=== PATIENT | female | born 1955 | race Caucasian/White ===

== ENCOUNTER → 2016-11-02 | Outpatient (CLI) | payer OTHER ==
[~2016-11-02] MED LIST: ASPI81TA28 PO; ATOR10TA88 PO; BIOT1POW3 PO; BIOTPOW17 PO; BUPR-83 PO; CHOL20007 PO; CLB/200 PO; CLR10 PO; DIAZ-165 PO; DIAZ10TA PO; DICLOFENAC GEL TOP; ESCI1TAB10 PO; FLUT0.15 NAE; INSDGI SC; LAMO100T16 PO; LEVO100T7 PO; LEVO88TA PO; LISI-461 PO; MELA3TAB PO; MELATAB2 PO; MISCCAP80 PO; NRN/300 PO; NVLG SQ; NVLGI SC; PEPPOIL TOP; PRAM1.5T PO; SUMA100T16 PO; TRAZ50TA35 PO; VALA500T60 PO; [UNRECOGNIZED DRUG - OTHER] TOP
[2016-11-02 13:25] LABS: BASO % 0.5 %; BASO ABS # 0.03 K/uL (0-0.2); COMPLETE YES; EOS % 2.1 %; HEMATOCRIT 42.4 % (37-47); IG% 0.2 %; LYMPH % 19.5 %; LYMPH ABS # 1.21 K/uL (1.2-3.4); MEAN CELL VOLUME 99.8 fL (80-100); MEAN CORPUSCULAR HEMOGLOBIN 34.6 pg (25-34); MEAN CORPUSCULAR HGB CONC 34.7 g/dl (32-36); MONO % 6.6 %; NEUT % 71.1 %; PLATELET COUNT 269 K/uL (130-400); RED BLOOD COUNT 4.25 M/uL (4.2-5.4); WHITE BLOOD COUNT 6.21 K/uL (4.8-10.8)
[2016-11-02 13:26] LABS: ALT/SGPT 47 U/L (12-78); BLOOD UREA NITROGEN 10 mg/dl (7-18); BUN/CREATININE RATIO 10.5 (10-20); CALCIUM 8.8 mg/dl (8.5-10.1); CARBON DIOXIDE 34 mmol/L (21-32); CHLORIDE 100 mmol/L (98-107); CHOLESTEROL 193 mg/dl (0-200); CREATININE 0.96 mg/dl (0.60-1.20); GLUCOSE 164 mg/dl (70-99); POTASSIUM 3.8 mmol/L (3.5-5.1); SODIUM 140 mmol/L (136-145)
[2016-11-02 13:31] LABS: ESTIMATED AVERAGE GLUCOSE 171 mg/dl; HA1C FLAG Normal (Normal)
[2016-11-02 13:36] LABS: ALB/GLOB RATIO 1.4 (0.9-2); ALKALINE PHOSPHATASE 109 U/L (45-117); AST/SGOT 38 U/L (15-37); CHOLESTEROL/HDL RATIO 1.9; HDL CHOLESTEROL 103 mg/dl; LDL CHOLESTEROL CALCULATED 75 mg/dl; TRIGLYCERIDES 73 mg/dl (0-150); VERY LOW DENSITY LIPOPROT CALC 15 mg/dl
--- NOTE | 2016-11-07 09:14 | CODING QUERY MEDICAL NECESSITY ---
SUPPORTING DIAGNOSIS NEEDED A supporting diagnosis is required for the test/procedure performed on this patient in order for us to be reimbursed by the patient's insurance. Please provide a supporting diagnosis for the following test/procedure listed below next to the test name along with your signature. *If there is no additional diagnosis for this patient that would support the following test/procedure please document that below next to the test/procedure. Test(s)/Procedure(s) that require a supporting diagnosis: DOS 11/02 * Vitamin D DIAGNOSIS: Provider Signature: Date: Thank you Zunilda Newman Health Information Management Once completed, please kindly fax back to [phone] For questions please call [phone]
== END | disposition home or self-care (01) ==
LOC: C.LABMFLN 08:33
PROVIDERS: ATTEND Family Medicine
DX: E03.9 Hypothyroidism, unspecified (principal); M85.80 Other specified disorders of bone density and structure, unspecified site; E10.649 Type 1 diabetes mellitus with hypoglycemia without coma; E10.65 Type 1 diabetes mellitus with hyperglycemia; E10.8 Type 1 diabetes mellitus with unspecified complications; R63.4 Abnormal weight loss; E56.9 Vitamin deficiency, unspecified

== ENCOUNTER → 2016-11-22 | Outpatient (CLI) | payer OTHER ==
[~2016-11-22] MED LIST changes: +ATOR10TA82 PO; -ATOR10TA88 PO
[2016-11-22 18:22] LABS: BASO % 0.2 %; BASO ABS # 0.01 K/uL (0-0.2); COMPLETE YES; EOS % 1.3 %; HEMATOCRIT 38.8 % (37-47); LYMPH % 19.7 %; MEAN CELL VOLUME 97.5 fL (80-100); MEAN CORPUSCULAR HEMOGLOBIN 34.2 pg (25-34); MEAN CORPUSCULAR HGB CONC 35.1 g/dl (32-36); MEAN PLATELET VOLUME 10.4 fL (7.4-10.4); MONO % 12.7 %; NEUT % 66.1 %; PLATELET COUNT 184 K/uL (130-400); RED BLOOD COUNT 3.98 M/uL (4.2-5.4); WHITE BLOOD COUNT 4.57 K/uL (4.8-10.8)
[2016-11-22 19:23] LABS: ALB/GLOB RATIO 1.4 (0.9-2); ALKALINE PHOSPHATASE 96 U/L (45-117); ALT/SGPT 24 U/L (12-78); AMYLASE 11 U/L (25-115); AST/SGOT 17 U/L (15-37); BLOOD UREA NITROGEN 12 mg/dl (7-18); BUN/CREATININE RATIO 13.2 (10-20); CALCIUM 8.2 mg/dl (8.5-10.1); CARBON DIOXIDE 30 mmol/L (21-32); CHLORIDE 104 mmol/L (98-107); CREATININE 0.89 mg/dl (0.60-1.20); GLUCOSE 162 mg/dl (70-99); POTASSIUM 3.8 mmol/L (3.5-5.1); SODIUM 139 mmol/L (136-145)
[2016-11-24 18:06] LABS: O&P GIARDIA AG NOT DETECTED (NOT DETECTED)
== END | disposition home or self-care (01) ==
LOC: C.LABMFLN 10:40
PROVIDERS: ATTEND Family Medicine
DX: R63.4 Abnormal weight loss (principal); R19.7 Diarrhea, unspecified; R53.83 Other fatigue; R11.0 Nausea; F32.9 Major depressive disorder, single episode, unspecified; G43.909 Migraine, unspecified, not intractable, without status migrainosus

== ENCOUNTER → 2016-12-28 | Outpatient (CLI) | payer OTHER | END | disposition home or self-care (01) | LOC: C.PAPS 10:22 | PROVIDERS: ATTEND Obstetrics & Gynecology | DX: Z12.4 Encounter for screening for malignant neoplasm of cervix (principal); R87.610 Atypical squamous cells of undetermined significance on cytologic smear of cervix (ASC-US) ==

== ENCOUNTER → 2017-01-17 | Outpatient (CLI) | payer OTHER ==
[~2017-01-17] MED LIST changes: -ASPI81TA28 PO; -DIAZ10TA PO; -INSDGI SC; -LEVO100T7 PO; -MELA3TAB PO; -NRN/300 PO; -PRAM1.5T PO
== END | disposition home or self-care (01) ==
LOC: C.PATHSPEC 10:34
PROVIDERS: ATTEND Plastic Surgery
DX: L72.0 Epidermal cyst (principal)

== ENCOUNTER 2017-01-31 05:26 | Day surgery (SDC) | payer OTHER ==
[2017-01-03 15:10] VITALS: BMI 18.0
--- NOTE | 2017-01-03 15:44 | PAT Medication Instructions ---
Service Date January 03, 2017. Current Home Medication List Atorvastatin (Lipitor), 10 MG PO QPM Bupropion (Wellbutrin), 100 MG PO QAM Celecoxib (CeleBREX), 200 MG PO QAM Cholecalciferol (Vitamin D3), 5,000 UNITS PO NOON Diazepam (Valium), 5 MG PO BID PRN for RN Escitalopram Oxalate (Lexapro), 20 MG PO QAM Fluticasone Propionate (Nasal) (Flonase Allergy Relief), 2 SPRAYS DAVID PRN Insulin Aspart (Novolog), UNITS SC AC Lamotrigine (Lamictal), 50 MG PO QAM Lamotrigine (Lamictal), 100 MG PO QPM Levothyroxine Sodium (Synthroid), 88 MCG PO QAM Lisinopril (Zestril), 10 MG PO QAM Loratadine (Claritin), 10 MG PO QPM Melatonin (Melatonin Maximum Strengt), 1 TAB PO HS Peppermint Oil (Bulk) (Peppermint Oil), 1 DOSE TOP PRN Probiotic Product (Probiotic), 1 TAB PO NOON Sumatriptan Succinate (Imitrex), 100 MG PO PRN Trazodone Hcl (Trazodone), 50-100 MG PO HS PRN for RN Valacyclovir (Valtrex), 500 MG PO QPM [Biotin], 1 TAB PO BID [Diclofenac Gel], 1 DOSE TOP PTN [M Grain], 1 DOSE TOP PRN Medication Instructions For Your Scheduled Surgery - Check with surgeon for instructions: Celecoxib (CeleBREX), 200 MG PO QAM - Hold the following medications 24 hours prior to surgery: [Diclofenac Gel], 1 DOSE TOP PTN [M Grain], 1 DOSE TOP PRN Peppermint Oil (Bulk) (Peppermint Oil), 1 DOSE TOP PRN - Hold the following medications the morning of surgery: [Biotin], 1 TAB PO BID Probiotic Product (Probiotic), 1 TAB PO NOON Lisinopril (Zestril), 10 MG PO QAM Cholecalciferol (Vitamin D3), 5,000 UNITS PO NOON Insulin Aspart (Novolog), UNITS SC AC - Take the following medications the morning of surgery with a sip of water: Sumatriptan Succinate (Imitrex), 100 MG PO PRN Levothyroxine Sodium (Synthroid), 88 MCG PO QAM Lamotrigine (Lamictal), 50 MG PO QAM Fluticasone Propionate (Nasal) (Flonase Allergy Relief), 2 SPRAYS DAVID PRN Escitalopram Oxalate (Lexapro), 20 MG PO QAM Diazepam (Valium), 5 MG PO BID PRN for RN Bupropion (Wellbutrin), 100 MG PO QAM - Take the following medications as scheduled the night before surgery: [Biotin], 1 TAB PO BID Valacyclovir (Valtrex), 500 MG PO QPM Trazodone Hcl (Trazodone), 50-100 MG PO HS PRN for RN Sumatriptan Succinate (Imitrex), 100 MG PO PRN Loratadine (Claritin), 10 MG PO QPM Melatonin (Melatonin Maximum Strengt), 1 TAB PO HS Lamotrigine (Lamictal), 100 MG PO QPM Fluticasone Propionate (Nasal) (Flonase Allergy Relief), 2 SPRAYS DAVID PRN Diazepam (Valium), 5 MG PO BID PRN for RN Atorvastatin (Lipitor), 10 MG PO QPM - Continue basal rate of insulin pump after midnight and do not bolus morning of surgery. If you have any questions please call us at [phone] (Anjelica Mcmahan PA-C) or [phone] or [phone]
[2017-01-03 16:20] LABS: BASO % 0.2 %; BASO ABS # 0.02 K/uL (0-0.2); COMPLETE YES; EOS % 1.2 %; HEMATOCRIT 38.3 % (37-47); IG% 0.1 %; LYMPH % 14.7 %; LYMPH ABS # 1.19 K/uL (1.2-3.4); MEAN CELL VOLUME 102.7 fL (80-100); MEAN CORPUSCULAR HEMOGLOBIN 34.3 pg (25-34); MEAN CORPUSCULAR HGB CONC 33.4 g/dl (32-36); MEAN PLATELET VOLUME 9.6 fL (7.4-10.4); MONO % 6.9 %; NEUT % 76.9 %; PLATELET COUNT 246 K/uL (130-400); RED BLOOD COUNT 3.73 M/uL (4.2-5.4)
[2017-01-03 16:36] LABS: BUN/CREATININE RATIO 11.9 (10-20); CALCIUM 8.4 mg/dl (8.5-10.1); POTASSIUM 4.2 mmol/L (3.5-5.1)
[~2017-01-31] VITALS: Ht 167.6 cm; Wt 50.9 kg
[~2017-01-31 05:26] MED LIST changes: -BIOT1POW3 PO; -NVLG SQ
[2017-01-31 05:49] VITALS: BP 178/81; PULSE 66; TEMP 36.7; O2SAT 99; Ht 167.6 cm; Wt 50.9 kg
[2017-01-31] MEDS ORDERED: LACTATED RINGER'S 1000ML 1,000 ML IV SCH ×2 (06:00→10:00)
[2017-01-31] MEDS ORDERED: DEXAMETHASONE SOD INJ 4 MG/ML VIAL ONE ×2 (06:21→07:23)
[2017-01-31] MEDS ORDERED: PROPOFOL IV EMULSION 10 MG/ML 20 ML VIAL IV ONE (06:21)
[2017-01-31] MEDS ORDERED: FENTANYL CITRATE INJ 50 MCG/1 ML 2 ML VIAL ONE (06:21)
[2017-01-31] MEDS ORDERED: ONDANSETRON INJ 2 MG/ML 2 ML VIAL ONE (06:21)
[2017-01-31] MEDS ORDERED: SUCCINYLCHOLINE CHLORIDE 20 MG/ML 10 ML VIAL IV ONE (06:21)
[2017-01-31] MEDS ORDERED: LIDOCAINE HCL 2% 2 ML VIAL (20MG/ML) ONE (06:21)
[2017-01-31] MEDS ORDERED: ROCURONIUM BROMIDE 10 MG/ML 5 ML VIAL ONE (06:21)
--- NOTE | 2017-01-31 06:37 | History and Physical ---
History & Physical Date Jan 31, 2017. Chief Complaint CHRONIC TONSILLITIS History of Present Illness The patient is a 61 year old female with complaints of CHRONIC TONSILLITIS WITH SORE THROATS, HALITOSIS, AND TONSILLITH FORMATION. Past Medical/Surgical History Medical Problems: (1) Diabetes YO, ASTHMA, DEPRESSION, ANXIETY, DYSLIPIDEMIA, HYPOTHYROIDISM, MIGRAINES, OA, OSTEOPENIA, RAYNAUD'S, RLS, VITAMIN D DEFICIENCY PSH: S/P APPY, , D&C, FINGER SURGERY, HYSTEROSCOPY Allergies Coded Allergies: Latex (Verified Allergy, Mild, RASH, 01/31/17) Cefaclor (Verified Allergy, Unknown, RASH HIVES, 01/31/17) Cephalosporins (Verified Allergy, Unknown, unknown, 01/31/17) Ciprofloxacin (Verified Allergy, Unknown, GI SYMPTOMS, 01/31/17) Sulfa Antibiotics (Verified Allergy, Unknown, UNKNOWN, 01/31/17) patient states that she has tolerated Bactrim in the past Amoxicillin (Unverified Adverse Reaction, Unknown, severe diarrhea, ) Clavulanic Acid (Unverified Adverse Reaction, Unknown, severe diarrhea, ) Home Medications Scheduled Atorvastatin (Lipitor), 10 MG PO QPM Bupropion (Wellbutrin), 100 MG PO QAM Cholecalciferol (Vitamin D3), 5,000 UNITS PO NOON Escitalopram Oxalate (Lexapro), 20 MG PO QAM Fluticasone Propionate (Nasal) (Flonase Allergy Relief), 2 SPRAYS DAVID PRN Insulin Aspart (Novolog), UNITS SC AC Lamotrigine (Lamictal), 50 MG PO QAM Lamotrigine (Lamictal), 100 MG PO QPM Levothyroxine Sodium (Synthroid), 88 MCG PO QAM Lisinopril (Zestril), 10 MG PO QAM Loratadine (Claritin), 10 MG PO QPM Melatonin (Melatonin Maximum Strengt), 1 TAB PO HS Peppermint Oil (Bulk) (Peppermint Oil), 1 DOSE TOP PRN Probiotic Product (Probiotic), 1 TAB PO NOON Sumatriptan Succinate (Imitrex), 100 MG PO PRN Valacyclovir (Valtrex), 500 MG PO QPM [Biotin], 1 TAB PO BID [M Grain], 1 DOSE TOP PRN Scheduled PRN Diazepam (Valium), 5 MG PO BID PRN for RN Trazodone Hcl (Trazodone), 50-100 MG PO HS PRN for RN Physical Examination Skin: warm/dry, no rash Eyes: normal inspection, EOMI, sclerae normal ENT: + pertinent finding (1-2+ TONSILS WITH TONSILLITH IN L SUPERIOR POLE) Head: normocephalic, atraumatic Neck: supple, no adenopathy, trachea midline Respiratory/Chest: lungs clear, normal breath sounds, no respiratory distress Cardiovascular: regular rate, rhythm, no edema, no murmur Neurologic/Psych: no motor/sensory deficits, alert, normal reflexes, oriented x 3 Diagnosis CHRONIC TONSILLITIS Plan of Treatment BILATERAL TONSILLECTOMY
--- NOTE | 2017-01-31 06:42 | Discharge Instructions ---
Discharge Instructions Date of Service Jan 31, 2017. Admission Reason for Admission: Chronic Tonsillitis Discharge Discharge Diagnosis / Problem: SAME Discharge Goals Goal(s): Therapeutic intervention Activity Recommendations Activity Limitations: as noted below LIGHT ACTIVITY FOR 2WEEKS; NO DRIVING WHILE ON LORTAB . Current Hospital Diet Patient's current hospital diet: Discharge Diet Recommended Diet: Full Liquid Diet Diet Texture: Mechanical Soft (ground) Pending Studies Studies pending at discharge: no Laboratory Results Hemoglobin A1c Test 11/02/16 11:46 Range/Units Estimated Average Glucose 171 mg/dl Hemoglobin A1c 7.6 H 4.5-5.6 % Lipid Panel Test 11/02/16 11:46 Range/Units Triglycerides Level 73 0-150 mg/dl Cholesterol Level 193 0-200 mg/dl HDL Cholesterol 103 mg/dl Cholesterol/HDL Ratio 1.9 LDL Cholesterol, Calculated 75 mg/dl Medical Emergencies . Who to Call and When: Medical Emergencies: If at any time you feel your situation is an emergency, please call 911 immediately. . Non-Emergent Contact Non-Emergency issues call your: Surgeon . . "Provider Documentation" section prepared by Rickey Marc. . VTE Core Measure Inpt VTE Proph given/why not?: SCD's
[2017-01-31] MEDS ORDERED: ACETAMINOPHEN 1000 MG/100 ML IV IV ONE (06:55)
[2017-01-31] MEDS ORDERED: BUPIVACAINE 0.25% 30 ML VIAL ONE (07:01)
[2017-01-31] MEDS ORDERED: BACITRACIN OINT 15 GM TUBE ONE (07:25)
--- NOTE | 2017-01-31 07:42 | [facility] Operative Report ---
Operative Report Operative Date Jan 31, 2017. Pre-Operative Diagnosis Chronic Tonsillitis Post-Operative Diagnosis SAME Procedure(s) Performed BILATERAL TONSILLECTOMY Surgeon Dr. Rickey Marc Tunneling Machine Operator Surgeon(s) None per surgeon Estimated Blood Loss 2ML Findings 1. 1-2+ CRYPTIC ENDOPHYTIC TONSILS WITH TONSILLITHS Specimens A.) Right Tonsil B.) Left Tonsil I attest to the content of the Intraoperative Record and any orders documented therein. Any exceptions are noted below.
[2017-01-31] MEDS ORDERED: HYDROCODONE/APAP 2.5MG/108MG ELIX 5 ML UDP PO PRN (07:45)
[2017-01-31] MEDS ORDERED: ONDANSETRON INJ 2 MG/ML 2 ML VIAL IV PRN ×2 (07:45→08:00)
[2017-01-31] MEDS ORDERED: LIDOCAINE VISCOUS 2% 100ML MT ONE (07:46)
[2017-01-31] MEDS ORDERED: FENTANYL CITRATE INJ 50 MCG/1 ML 2 ML VIAL IV PRN (08:00)
[2017-01-31] MEDS ORDERED: EpHEDrine SULFATE INJ 50 MG/ML AMP IV PRN (08:00)
[2017-01-31] MEDS ORDERED: PROMETHAZINE HCL INJ 6.25 MG in SODIUM CHLORIDE 0.9% 50ML 50 ML IV PRN (08:00)
[2017-01-31] MEDS ORDERED: ATROPINE SULFATE 0.1 MG/ML 5ML SYR IV PRN (08:00)
--- NOTE | 2017-01-31 08:06 | OPERATIVE REPORT ---
DATE OF OPERATION: 01/31/2017 PREOPERATIVE DIAGNOSIS: Chronic tonsillitis. POSTOPERATIVE DIAGNOSIS: Chronic tonsillitis. PROCEDURE: Bilateral tonsillectomy. SURGEON: Dr. Marc. HOST/HOSTESS RESTAURANT: None. ANESTHESIA: General endotracheal. ESTIMATED BLOOD LOSS: 2 mL FINDINGS: Two 1-2+ cryptic endophytic tonsils bilaterally with tonsillith formation. SPECIMENS: Left and right tonsil sent separately for permanent pathological assessment. COMPLICATIONS: None. INDICATIONS FOR THE PROCEDURE: The patient is a 61-year-old female with a history of chronic tonsillitis with recurrent tonsillith formation and associated sore throats and halitosis. She presents for the above-mentioned procedure on an outpatient elective basis. DESCRIPTION OF PROCEDURE: After informed consent had been obtained from the patient, the patient was wheeled to the operating room and placed on the operating table in supine position. Monitors were placed. After induction of general endotracheal anesthesia, the table was turned 90 degrees and the patient's head and neck were gently extended. Antibiotic ointment was applied to lips and the mouth gag was carefully inserted, opened, and stabilized on a roll of towels. The palate was inspected and found to be normal. An Allis clamp was then used to grasp the right tonsil and the superior pole and Bovie electrocautery was used to remove the tonsil in a capsular plane with care to preserve the underlying mucosa and musculature of the anterior and posterior tonsillar pillars. The left tonsil was then removed in a similar fashion. The intraoperative findings were 1-2+ cryptic endophytic tonsils bilaterally with tonsillith formation. The tonsils were sent separately for permanent pathological assessment. The mouth gag was then released for 1 minute. This was reopened and hemostasis was confirmed. An orogastric tube was placed and the stomach was suctioned free of air and stomach contents. 2% lidocaine jelly was placed in the bilateral tonsillar fossae for added anesthetic effect. This marked the end of the case. The patient tolerated the procedure well and there were no apparent complications. The patient was extubated and transferred to recovery room in stable condition. I attest to the content of the Intraoperative Record and any orders documented therein. Any exception s are noted below.
--- NOTE | 2017-01-31 08:42 | Anesthesiology Progress Note ---
Anesthesia Post Op Note Date & Time Jan 31, 2017 at 08:42 Vital Signs Pain Intensity: 0 Vital Signs Past 12 Hours Date Time Temp Pulse Resp B/P (MAP) Pulse Ox O2 Delivery O2 Flow Rate FiO2 01/31/17 08:30 65 16 164/81 97 Room Air Oxymask 01/31/17 08:20 70 16 160/83 98 Room Air Oxymask 01/31/17 08:10 72 16 160/85 100 Oxymask 3 01/31/17 08:02 36.3 65 14 166/89 100 Oxymask 10 01/31/17 05:49 36.7 66 16 178/81 (113) 99 Notes Mental Status: alert / awake / arousable, participated in evaluation Pt Amnestic to Procedure: Yes Nausea / Vomiting: adequately controlled Pain: adequately controlled Airway Patency, RR, SpO2: stable & adequate BP & HR: stable & adequate Hydration State: stable & adequate Anesthetic Complications: no major complications apparent
[2017-01-31 08:50] VITALS: BP 158/75; PULSE 66; TEMP 36.6; O2SAT 99
[2017-01-31 09:20] VITALS: BP 166/77; PULSE 63; O2SAT 100
[2017-01-31 09:50] VITALS: BP 158/68; PULSE 68; O2SAT 100
[2017-01-31 10:20] VITALS: BP 139/70; PULSE 60; TEMP 36.6; O2SAT 100
[2017-01-31] MEDS ORDERED: BELLADONNA/OPIUM SUPP 60 MG SUPP PR ONE (11:02)
== END 2017-01-31 10:40 | disposition home or self-care (01) ==
LOC: C.ACU 05:26
DX: J35.01 Chronic tonsillitis (principal); E11.9 Type 2 diabetes mellitus without complications; J45.909 Unspecified asthma, uncomplicated; I10 Essential (primary) hypertension; G47.33 Obstructive sleep apnea (adult) (pediatric); E78.5 Hyperlipidemia, unspecified; F32.9 Major depressive disorder, single episode, unspecified; Z79.899 Other long term (current) drug therapy; Z90.89 Acquired absence of other organs; Z98.890 Other specified postprocedural states; Z91.040 Latex allergy status; Z88.1 Allergy status to other antibiotic agents; Z88.2 Allergy status to sulfonamides; Z68.1 Body mass index [BMI] 19.9 or less, adult

== ENCOUNTER → 2017-02-19 | Outpatient (CLI) | payer OTHER ==
[~2017-02-19] MED LIST changes: -ATOR10TA82 PO; +ATOR10TA88 PO; +BIOT1POW3 PO; -CLB/200 PO; -DICLOFENAC GEL TOP; +NVLG SQ
[2017-02-19 13:48] LABS: ALT/SGPT 53 U/L (12-78); BLOOD UREA NITROGEN 10 mg/dl (7-18); BUN/CREATININE RATIO 11.7 (10-20); CARBON DIOXIDE 35 mmol/L (21-32); CHLORIDE 100 mmol/L (98-107); CHOLESTEROL 170 mg/dl (0-200); CREATININE 0.84 mg/dl (0.60-1.20); ESTIMATED AVERAGE GLUCOSE 166 mg/dl; GLUCOSE 141 mg/dl (70-99); HA1C FLAG Normal (Normal); POTASSIUM 3.8 mmol/L (3.5-5.1); SODIUM 140 mmol/L (136-145)
[2017-02-19 14:04] LABS: ALB/GLOB RATIO 1.4 (0.9-2); ALKALINE PHOSPHATASE 123 U/L (45-117); AST/SGOT 33 U/L (15-37); HDL CHOLESTEROL 83 mg/dl; LDL CHOLESTEROL CALCULATED 73 mg/dl; TRIGLYCERIDES 68 mg/dl (0-150); VERY LOW DENSITY LIPOPROT CALC 14 mg/dl
== END | disposition home or self-care (01) ==
LOC: C.LABMFLN 11:19
PROVIDERS: ATTEND Family Medicine
DX: E10.65 Type 1 diabetes mellitus with hyperglycemia (principal); E10.69 Type 1 diabetes mellitus with other specified complication; E03.9 Hypothyroidism, unspecified; E10.43 Type 1 diabetes mellitus with diabetic autonomic (poly)neuropathy

== ENCOUNTER 2017-04-18 16:47 | Emergency (ER) | payer OTHER ==
[~2017-04-18] VITALS: Ht 167.6 cm; Wt 50.6 kg
[~2017-04-18 16:47] MED LIST changes: -BIOT1POW3 PO; -NVLG SQ
[2017-04-18 16:53] VITALS: TEMP 36.5; Ht 167.6 cm; Wt 50.6 kg
[2017-04-18] MEDS ORDERED: SODIUM CHLORIDE 0.9% 1000ML 1,000 ML IV STA (17:13)
[2017-04-18] MEDS ORDERED: SODIUM CHLORIDE 0.9% 1000ML 250 ML IV STA (17:13)
--- NOTE | 2017-04-18 17:19 | EMERGENCY ROOM VISIT NOTE ---
History Report prepared by Felisha: Bia Drake Under the Supervision of: Dr. Davis Cardenas M.D. First contact with patient: 16:59 Chief Complaint: STROKE SYMPTOMS Stated Complaint: STUMBLING, WEAKNESS, TROUBLE/SLURRED SPEAKING History of Present Illness The patient is a 61 year old female who presents to the Emergency Room with complaints of constant generalized weakness beginning about a month ago. The patient notes she has been having trouble speaking, putting words together, slurring of her words, trouble thinking and remember things, stumbling over feet , dizziness after leaning over to bead picker things, loss of strength in her hands , shakiness in hands, racing heart beat, and constant chills. She denies any falls, vision changes, problems swallowing, fever, chest pain, shortness of breath, nausea, or vomiting. The patient also notes numbness in her left left arm that extends to her fingers that may be due to an injury she had with her left shoulder a couple months ago. The patient has a history of vertigo, diabetes, depression and anxiety. She states her diabetes is well controlled and that she was recently put on medication for her anxiety and depression. The patient's PCP is Dr. Jose Carlos Urban who advised her to come to the ED today. The patient saw Dr. Jacobson -Psychiatry today about her new depression/anxiety medication and her recent trouble maintaining her weight. She has a history of hypothyroidism and a tonsillectomy. Source of History: patient, family Onset: a month ago Position: other (generalized) Quality: other (weakness) Associated Symptoms: No fevers, No chest pain, No SOB, No nausea, No vomiting Note: The patient notes trouble speaking, putting words together, slurring of her words, trouble thinking and remember things, stumbling over feet, dizziness after leaning over to bead picker things, loss of strength in her hands, shakiness in hands, some racing heart beats, and constant chills. Pt denies any falls, vision changes, or problems swallowing. Review of Systems See HPI for pertinent positives & negatives. A total of 10 systems reviewed and were otherwise negative. Past Medical & Surgical Medical Problems: (1) Anxiety (2) Depression (3) Diabetes (4) Hypothyroid (5) Vertigo Old medical records were reviewed. Nurse's notes were reviewed and I agree with. Family History Diabetes mellitus Social History Smoking Status: Never Smoker Smokeless Tobacco Use: No Alcohol Use: occasionally Drug Use: none Housing Status: lives with family Occupation Status: employed Current/Historical Medications Scheduled Atorvastatin (Lipitor), 10 MG PO QPM Biotin (Biotin), 1 TAB PO BID Bupropion (Wellbutrin), 100 MG PO UD Cholecalciferol (Vitamin D3), 5,000 UNITS PO NOON Diazepam (Valium), 5 MG PO HS Escitalopram Oxalate (Lexapro), 20 MG PO HS Fluticasone Propionate (Nasal) (Flonase Allergy Relief), 2 SPRAYS DAVID PRN Insulin Aspart (Novolog), SQ AC Lamotrigine (Lamictal), 50 MG PO BID Levothyroxine Sodium (Synthroid), 88 MCG PO QAM Lisinopril (Zestril), 10 MG PO HS Loratadine (Claritin), 10 MG PO QPM Melatonin (Melatonin Maximum Strengt), 1 TAB PO HS Peppermint Oil (Bulk) (Peppermint Oil), 1 DOSE TOP PRN Sumatriptan Succinate (Imitrex), 100 MG PO PRN Valacyclovir (Valtrex), 500 MG PO QPM [M Grain], 1 DOSE TOP PRN Scheduled PRN Trazodone Hcl (Trazodone), 50-100 MG PO HS PRN for RN Allergies Coded Allergies: Latex (Verified Allergy, Mild, RASH, 04/18/17) Cefaclor (Verified Allergy, Unknown, RASH HIVES, 04/18/17) Cephalosporins (Verified Allergy, Unknown, unknown, 04/18/17) Sulfa Antibiotics (Verified Allergy, Unknown, UNKNOWN, 04/18/17) patient states that she has tolerated Bactrim in the past Amoxicillin (Verified Adverse Reaction, Unknown, severe diarrhea, 04/18/17) Ciprofloxacin (Verified Adverse Reaction, Unknown, GI SYMPTOMS, 04/18/17) Clavulanic Acid (Verified Adverse Reaction, Unknown, severe diarrhea, ) Physical Exam Vital Signs Date Time Temp Pulse Resp B/P (MAP) Pulse Ox O2 Delivery O2 Flow Rate FiO2 04/18/17 20:34 62 18 146/77 100 04/18/17 20:21 66 18 99 04/18/17 20:06 66 17 99 04/18/17 20:01 147/78 9/6/17 19:51 71 18 98 04/18/17 19:36 69 17 98 04/18/17 19:31 151/83 04/18/17 19:06 68 15 100 04/18/17 19:01 164/84 04/18/17 19:00 68 18 100 04/18/17 18:49 62 16 167/91 100 Room Air 04/18/17 18:46 04/18/17 18:45 70 17 100 04/18/17 17:48 66 04/18/17 16:53 36.5 72 18 161/87 99 Room Air Physical Exam General: Slender middle aged female in no acute distress, breathing comfortably on room air. Normal speech HEENT: Normal cephalic atraumatic. Pupils are equal round and reactive to light. Extraocular movements are intact. Oropharynx is pink with moist mucous membranes. No swelling of the mouth lips or tongue. Foster Coma Score 15. Normal speech. No aphasia. Answering questions appropriately with normal thought process. Neck: Supple with a midline trachea. No meningeal signs or stiffness, no JVD or bruits. No Stridor. Chest: Clear to auscultation bilaterally. No wheezes or rhonchi. No increased work of breathing. Heart: regular rate and rhythm. Abdomen: Soft nontender, nondistended without rebound guarding or rigidity. Extremities: No cyanosis clubbing or edema. No calf tenderness or assymetry Spine/Back. Non tender to palpation. No CVA tenderness Skin: Good turgor without rashes. Neurologic exam: Cranial nerves two through 12 are intact. Motor and sensation are intact and symmetrical throughout. No tremor, finger to nose intact, able to read without difficulty. Medical Decision & Procedures ER Provider Diagnostic Interpretation: Radiology results as stated below per my review and radiologist interpretation: CHEST ONE VIEW PORTABLE FINDINGS: Lung volumes are at the upper limits of normal. Nipple shadows project over each lung. There is no consolidation or evidence of pulmonary edema. Cardiomediastinal silhouette is normal. There is no pneumothorax or pleural effusion. IMPRESSION: No acute cardiopulmonary findings. Electronically signed by: Maximo Quinn M.D. CT SCAN OF THE BRAIN WITHOUT IV CONTRAST FINDINGS: Brain parenchyma: There is mild subcortical and periventricular microangiopathic change. There is no hemorrhage, mass effect, or evidence of acute territorial ischemia by CT criteria. Marinelli-white matter is preserved. No extra-axial fluid collection is seen. Ventricles, sulci, cisterns: Normal in configuration. Intracranial vasculature: There is atherosclerotic calcification of the cavernous carotid arteries. Calvarium: Unremarkable. Sinuses and mastoids: The visualized paranasal sinuses are clear. The mastoid air cells are well pneumatized. Orbits: The bony orbits are grossly intact. IMPRESSION: There is no hemorrhage, mass effect, or evidence of acute territorial ischemia by CT criteria. Electronically signed by: Jose Carlos Kaur M.D. Laboratory Results 04/18/17 18:10 Red Blood Count 4.13, Mean Corpuscular Volume 99.8, Mean Corpuscular Hemoglobin 35.1, Mean Corpuscular Hemoglobin Concent 35.2, Mean Platelet Volume 9.5, Neutrophils (%) (Auto) 74.8, Lymphocytes (%) (Auto) 17.7, Monocytes (%) (Auto) 5.9, Eosinophils (%) (Auto) 1.4, Basophils (%) (Auto) 0.1, Neutrophils # (Auto) 5.17, Lymphocytes # (Auto) 1.23, Monocytes # (Auto) 0.41, Eosinophils # (Auto) 0.10, Basophils # (Auto) 0.01 04/18/17 18:10 Test 04/18/17 18:10 04/18/17 18:51 White Blood Count 6.93 K/uL (4.8-10.8) Red Blood Count 4.13 M/uL (4.2-5.4) Hemoglobin 14.5 g/dL (12.0-16.0) Hematocrit 41.2 % (37-47) Mean Corpuscular Volume 99.8 fL (80-100) Mean Corpuscular Hemoglobin 35.1 pg (25-34) Mean Corpuscular Hemoglobin Concent 35.2 g/dl (32-36) Platelet Count 228 K/uL (130-400) Mean Platelet Volume 9.5 fL (7.4-10.4) Neutrophils (%) (Auto) 74.8 % Lymphocytes (%) (Auto) 17.7 % Monocytes (%) (Auto) 5.9 % Eosinophils (%) (Auto) 1.4 % Basophils (%) (Auto) 0.1 % Neutrophils # (Auto) 5.17 K/uL (1.4-6.5) Lymphocytes # (Auto) 1.23 K/uL (1.2-3.4) Monocytes # (Auto) 0.41 K/uL (0.11-0.59) Eosinophils # (Auto) 0.10 K/uL (0-0.5) Basophils # (Auto) 0.01 K/uL (0-0.2) RDW Standard Deviation 41.4 fL (36.4-46.3) RDW Coefficient of Variation 11.4 % (11.5-14.5) Immature Granulocyte % (Auto) 0.1 % Immature Granulocyte # (Auto) 0.01 K/uL (0.00-0.02) Anion Gap 3.0 mmol/L (3-11) Est Creatinine Clear Calc Drug Dose 60.5 ml/min Estimated GFR () 95.9 Estimated GFR (Non- 82.8 BUN/Creatinine Ratio 15.7 (10-20) Calcium Level 9.1 mg/dl (8.5-10.1) Total Bilirubin 0.5 mg/dl (0.2-1) Direct Bilirubin 0.2 mg/dl (0-0.2) Aspartate Amino Transf (AST/SGOT) 27 U/L (15-37) Alanine Aminotransferase (ALT/SGPT) 43 U/L (12-78) Alkaline Phosphatase 132 U/L (45-117) Total Protein 6.8 gm/dl (6.4-8.2) Albumin 4.2 gm/dl (3.4-5.0) Lipase 77 U/L (73-393) Thyroid Stimulating Hormone (TSH) 2.540 uIu/ml (0.300-4.500) Urine Color YELLOW Urine Appearance CLEAR (CLEAR) Urine pH 8.5 (4.5-7.5) Urine Specific [place] 1.010 (1.000-1.030) Urine Protein NEG (NEG) Urine Glucose (UA) NEG (NEG) Urine Ketones NEG (NEG) Urine Occult Blood NEG (NEG) Urine Nitrite NEG (NEG) Urine Bilirubin NEG (NEG) Urine Urobilinogen NEG (NEG) Urine Leukocyte Esterase NEG (NEG) Laboratory studies as stated above per my review. Medications Administered Medications (Trade) Dose Ordered Sig/[place] Route Start Time Stop Time Status Last Admin Dose Admin Sodium Chloride 250 ml @ 999 mls/hr Q16M STAT IV 04/18/17 17:13 04/18/17 17:28 DC 04/18/17 18:17 999 MLS/HR Sodium Chloride 1,000 ml @ 100 mls/hr Q10H STAT IV 04/18/17 17:13 04/18/17 22:18 DC 04/18/17 18:17 100 MLS/HR ECG Indication: weakness Rate (beats per minute): 63 Rhythm: normal sinus Findings: RBBB (incomplete), no ectopy, other (poor R-wave progression) Comparison ECG Date: no prior available ED Course 170: Past medical records reviewed. The patient was evaluated in room A9B, and a complete history and physical examination were performed. 1713: Sodium Chloride 1000 ml @ 100 mls/hr IV, Sodium Chloride 250 ml @ 999 mls/ hr IV. 1830: The patient is headed to CT. She is comfortable appearing. 1925: Upon reevaluation, the patient is resting comfortably. I discussed the results and treatment plan with her. She verbalized agreement of the treatment plan. The patient was discharged home. Medical Decision Differential diagnosis include but are not limited to: intracranial process, medication side effect, electrolyte metabolic abnormality, infection, toxicologic process. This patient comes in as described above. She was placed in room A9. She complains about having sensation that it's hard to find words and feeling a little shaky over the last month. There is nothing different about today. There is nothing to suggest that she had an acute stroke at present as the symptoms have gone on for a while and she has a normal exam and normal stroke scale. She was able to read sentences without problems or slurred speech. She has no nystagmus. She does not drink alcohol. She is on multiple psychiatric medications that possibly be causing some of her symptoms. She has no clonus or anything to suggest serotonin syndrome. EKG does not suggest acute coronary syndrome or arrhythmia .CAT scan of her head is unremarkable. She's had no acute electrolyte or metabolic abnormalities. She's 10 nothing shows trauma or infection. She feels good and would like to go home. She is ambulating without difficulty. I will have her follow-up with her regular doctor and she may need further outpatient workup including possibly an MRI. She can use and aspirin day and return if: Worsening of symptoms, any new problems or concerns. She is happy the plan and discharged to home. Medication Reconcilliation Current Medication List: was personally reviewed by me Blood Pressure Screening Patient's blood pressure: Elevated blood pressure Blood pressure disposition: Elevated BP felt to be situational Impression Primary Impression: Weakness Scribe Attestation The scribe's documentation has been prepared under my direction and personally reviewed by me in its entirety. I confirm that the note above accurately reflects all work, treatment, procedures, and medical decision making performed by me. Departure Information Dispostion Home / Self-Care Referrals Jose Carlos Urban M.D. (PCP) Forms HOME CARE DOCUMENTATION FORM, IMPORTANT VISIT INFORMATION Patient Instructions My [facility] Additional Instructions Rest. Drink plenty of fluids. Return if: Fever or chills, worsening of symptoms, numbness of weakness, any new problems or concerns Follow-up with your doctor this week for recheck
[2017-04-18] MEDS ORDERED: BIOT1POW3 PO (17:35)
[2017-04-18] MEDS ORDERED: NVLG SQ (17:35)
--- NOTE | 2017-04-18 17:52 | DIAGNOSTIC IMAGING REPORT ---
CHEST ONE VIEW PORTABLE CLINICAL HISTORY: Chest pain. COMPARISON STUDY: Chest radiograph October 15, 2012. FINDINGS: Lung volumes are at the upper limits of normal. Nipple shadows project over each lung. There is no consolidation or evidence of pulmonary edema. Cardiomediastinal silhouette is normal. There is no pneumothorax or pleural effusion. IMPRESSION: No acute cardiopulmonary findings. Electronically signed by: Maximo Quinn M.D. 04/18/2017 5:51 PM Dictated Date/Time: 04/18/2017 5:50 PM
[2017-04-18 18:26] LABS: BASO % 0.1 %; BASO ABS # 0.01 K/uL (0-0.2); COMPLETE YES; EOS % 1.4 %; HEMATOCRIT 41.2 % (37-47); IG% 0.1 %; LYMPH % 17.7 %; LYMPH ABS # 1.23 K/uL (1.2-3.4); MEAN CELL VOLUME 99.8 fL (80-100); MEAN CORPUSCULAR HEMOGLOBIN 35.1 pg (25-34); MEAN CORPUSCULAR HGB CONC 35.2 g/dl (32-36); MEAN PLATELET VOLUME 9.5 fL (7.4-10.4); MONO % 5.9 %; NEUT % 74.8 %; PLATELET COUNT 228 K/uL (130-400); RED BLOOD COUNT 4.13 M/uL (4.2-5.4); WHITE BLOOD COUNT 6.93 K/uL (4.8-10.8)
--- NOTE | 2017-04-18 18:32 | DIAGNOSTIC IMAGING REPORT ---
CT SCAN OF THE BRAIN WITHOUT IV CONTRAST CLINICAL HISTORY: Slurred speech. COMPARISON STUDY: No priors. TECHNIQUE: Unenhanced axial CT scan of the brain is performed from the vertex to the skull base. CT DOSE: 537.48 mGy.cm FINDINGS: Brain parenchyma: There is mild subcortical and periventricular microangiopathic change. There is no hemorrhage, mass effect, or evidence of acute territorial ischemia by CT criteria. Marinelli-white matter is preserved. No extra-axial fluid collection is seen. Ventricles, sulci, cisterns: Normal in configuration. Intracranial vasculature: There is atherosclerotic calcification of the cavernous carotid arteries. Calvarium: Unremarkable. Sinuses and mastoids: The visualized paranasal sinuses are clear. The mastoid air cells are well pneumatized. Orbits: The bony orbits are grossly intact. IMPRESSION: There is no hemorrhage, mass effect, or evidence of acute territorial ischemia by CT criteria. Electronically signed by: Jose Carlos Kaur M.D. 04/18/2017 6:31 PM Dictated Date/Time: 04/18/2017 6:29 PM
[2017-04-18 18:51] LABS: BUN/CREATININE RATIO 15.7 (10-20); CALCIUM 9.1 mg/dl (8.5-10.1); CREATININE 0.77 mg/dl (0.60-1.20); POTASSIUM 3.8 mmol/L (3.5-5.1)
[2017-04-18 19:02] LABS: THYROID STIMULATING HORMONE 2.54 uIu/ml (0.300-4.500)
[2017-04-18 19:05] LABS: URINE APPEARANCE CLEAR (CLEAR); URINE BILIRUBIN NEG (NEG); URINE COLOR YELLOW; URINE NITRITE NEG (NEG); URINE PH 8.5 (4.5-7.5); UROBILINOGEN NEG (NEG)
[2017-04-18 19:10] LABS: MANUAL MICROSCOPIC REQUIRED? NO; REVIEW REQ? NO
[2017-04-18 20:34] VITALS: BP 146/77; PULSE 62; O2SAT 100
== END 2017-04-18 20:34 | disposition home or self-care (01) ==
LOC: C.EDB 16:50 → C.EDA 20:34
DX: R53.1 Weakness (principal); I45.10 Unspecified right bundle-branch block; E11.9 Type 2 diabetes mellitus without complications; E03.9 Hypothyroidism, unspecified; F32.9 Major depressive disorder, single episode, unspecified; F41.9 Anxiety disorder, unspecified; Z79.4 Long term (current) use of insulin; Z79.899 Other long term (current) drug therapy; Z88.1 Allergy status to other antibiotic agents; Z88.2 Allergy status to sulfonamides; Z88.8 Allergy status to other drugs, medicaments and biological substances; Z91.040 Latex allergy status

== ENCOUNTER → 2017-04-19 | Outpatient (CLI) | payer OTHER ==
[~2017-04-19] MED LIST changes: +BIOT1POW3 PO; -BIOTPOW17 PO; -MISCCAP80 PO; +NVLG SQ; -NVLGI SC
--- NOTE | 2017-05-09 11:11 | CODING QUERY MEDICAL NECESSITY ---
CQSUPPORTING DIAGNOSIS NEEDED A supporting diagnosis is required for the test/procedure performed on this patient in order for us to be reimbursed by the patient's insurance. Please provide a supporting diagnosis for the following test/procedure listed below next to the test name along with your signature. *If there is no additional diagnosis for this patient that would support the following test/procedure please document that below next to the test/procedure. Test(s)/Procedure(s) that require a supporting diagnosis: DOS 04/19/17 VITAMIN B12 TEST FOLIC ACID TEST Provider Signature: Date: Thank you Stephanie Perez Health Information Management Once completed, please kindly fax back to [phone] For questions please call [phone]
== END | disposition home or self-care (01) ==
LOC: C.LABMFLN 16:07
PROVIDERS: ATTEND Family Medicine
DX: R47.01 Aphasia (principal); G62.9 Polyneuropathy, unspecified; E55.9 Vitamin D deficiency, unspecified

== ENCOUNTER → 2017-05-22 | Outpatient (CLI) | payer OTHER ==
[2017-05-22 13:13] LABS: ESTIMATED AVERAGE GLUCOSE 166 mg/dl; HA1C FLAG Normal (Normal)
[2017-05-22 14:02] LABS: BLOOD UREA NITROGEN 9 mg/dl (7-18); BUN/CREATININE RATIO 11.2 (10-20); CARBON DIOXIDE 35 mmol/L (21-32); CHLORIDE 99 mmol/L (98-107); CREATININE 0.83 mg/dl (0.60-1.20); GLUCOSE 146 mg/dl (70-99); POTASSIUM 3.3 mmol/L (3.5-5.1); SODIUM 138 mmol/L (136-145)
== END | disposition home or self-care (01) ==
LOC: C.LABMFLN 09:35
PROVIDERS: ATTEND Family Medicine
DX: E10.9 Type 1 diabetes mellitus without complications (principal); E03.9 Hypothyroidism, unspecified

== ENCOUNTER → 2017-06-04 | Outpatient (CLI) | payer OTHER ==
--- NOTE | 2017-06-05 15:18 | MAMMOGRAPHY REPORT ---
BILATERAL DIGITAL SCREENING MAMMOGRAM TOMOSYNTHESIS WITH CAD: 06/04/2017 CLINICAL HISTORY: Routine screening. Patient has no complaints. TECHNIQUE: Breast tomosynthesis in addition to standard 2D mammography was performed. Current study was also evaluated with a Computer Aided Detection (CAD) system. COMPARISON: Comparison is made to exams dated: 06/01/2016 mammogram, 05/07/2014 mammogram, 05/06/2013 mammogram, 12/20/2010 ultrasound, 12/20/2010 mammogram, and 12/08/2010 mammogram - [facility]. BREAST COMPOSITION: The tissue of both breasts is heterogeneously dense, which may obscure small mas ses. FINDINGS: There are mild vascular calcifications in the breasts. No suspicious mass, architectural distortion or cluster of suspicious microcalcifications is seen. IMPRESSION: ACR BI-RADS CATEGORY 1: NEGATIVE There is no mammographic evidence of malignancy. A 1 year screening mammogram is recommended. The pa tient will receive written notification of the results. Approximately 10% of breast cancers are not detected with mammography. A negative mammographic report should not delay biopsy if a clinically suggestive mass is present. Trice La M.D. ay/:06/04/2017 15:53:31 Boiling Off Winder: Nimo CRAWFORD(Lissy)(M), [facility] letter sent: Normal 1/2 BI-RADS Code: ACR BI-RADS Category 1: Negative
== END | disposition home or self-care (01) ==
LOC: C.MAMM 14:50
PROVIDERS: ATTEND Obstetrics & Gynecology
DX: Z12.31 Encounter for screening mammogram for malignant neoplasm of breast (principal)

== ENCOUNTER → 2017-07-17 | Outpatient (CLI) | payer OTHER ==
[~2017-07-17] MED LIST changes: +ATOR10TA82 PO; -ATOR10TA88 PO
== END | disposition home or self-care (01) ==
LOC: C.PAPS 17:39
PROVIDERS: ATTEND Obstetrics & Gynecology
DX: R87.612 Low grade squamous intraepithelial lesion on cytologic smear of cervix (LGSIL) (principal)

== ENCOUNTER → 2017-09-06 | Outpatient (CLI) | payer OTHER ==
[2017-09-06 18:27] LABS: BLOOD UREA NITROGEN 14 mg/dl (7-18); CALCIUM 9.1 mg/dl (8.5-10.1); CARBON DIOXIDE 35 mmol/L (21-32); CREATININE 0.84 mg/dl (0.60-1.20); GLUCOSE 199 mg/dl (70-99); SODIUM 133 mmol/L (136-145)
[2017-09-07 06:10] LABS: HEMOGLOBIN A1C 7.3 % (4.5-5.6)
== END | disposition home or self-care (01) ==
LOC: C.LABMFLN 15:26
PROVIDERS: ATTEND Family Medicine
DX: E03.9 Hypothyroidism, unspecified (principal); E78.5 Hyperlipidemia, unspecified; F41.8 Other specified anxiety disorders

== ENCOUNTER → 2017-09-27 | Outpatient (CLI) | payer OTHER | END | disposition home or self-care (01) | LOC: C.PATHSPEC 18:32 | PROVIDERS: ATTEND Obstetrics & Gynecology | DX: R87.610 Atypical squamous cells of undetermined significance on cytologic smear of cervix (ASC-US) (principal); R87.810 Cervical high risk human papillomavirus (HPV) DNA test positive ==

== ENCOUNTER → 2017-11-21 | Day surgery (SDC) | payer OTHER ==
[2017-10-25 13:59] VITALS: Ht 167.6 cm; Wt 53.2 kg
[~2017-11-21] VITALS: Ht 167.6 cm; Wt 53.2 kg
[~2017-11-21] MED LIST changes: +ACETIC ACID 4% (WHITE VINEGAR) 30ML ONE; +ALLERGY MED PO; +AMLO-110 PO; +ATROPINE SULFATE 0.1 MG/ML 5ML SYR IV PRN; -BIOT1POW3 PO; +BUPR-79 PO; -BUPR-83 PO; +CHOL1CAP57 PO; -CHOL20007 PO; -CLR10 PO; +EpHEDrine SULFATE INJ 50 MG/ML AMP IV PRN; +FENTANYL CITRATE INJ 50 MCG/1 ML 2 ML VIAL IV PRN; +FENTANYL CITRATE INJ 50 MCG/1 ML 2 ML VIAL ONE; +FERRIC SUBSULFATE 8 GM VIAL ONE; +IBUPROFEN 600 MG TAB PO PRN; +IODINE SOLN STRONG 14 ML ONE; +KETO1DRO17 OPB; +KETOROLAC TROMETHAMINE 30 MG/ML VIAL IV. PRN; +KETOROLAC TROMETHAMINE 30 MG/ML VIAL ONE; +LACTATED RINGER'S 1000ML 1,000 ML IV SCH; -LAMO100T16 PO; -LEVO88TA PO; +LEVO88TA3 PO; +LIDO 2%/EPINEPHRINE 1:100000 20 ML VIAL INFIL ONE; +LIDOCAINE HCL 2% 2 ML VIAL (20MG/ML) ONE; -LISI-461 PO; +LISI-725 PO; +MELA1TAB3 PO; -MELATAB2 PO; +MIDAZOLAM HCL 1 MG/ML 2ML VIAL ONE; +MULT-506 PO; +MoRPHine SULFATE 2 MG/ML CARP IV PRN; +MoRPHine SULFATE 4 MG/ML 1 ML CARP\\VIAL IV PRN; +ONDANSETRON INJ 2 MG/ML 2 ML VIAL ONE; +OXYCODONE/ACETAMINOPHEN 5-325 TAB PO PRN; -PEPPOIL TOP; +POLY1SOL6 OPB; +POTA-639 PO; +PROPOFOL IV EMULSION 10 MG/ML 20 ML VIAL IV ONE; +SODIUM CHLORIDE 0.9% 1000ML 1,000 ML IV SCH; -[UNRECOGNIZED DRUG - OTHER] TOP
--- NOTE | 2017-11-21 11:46 | History & Physical Bridge - SC ---
H&P Re-Evaluation Bridge Note: I have examined the patient, reviewed the History & Physical and in the interval since the performance of the History & Physical I have noted the following changes of clinical significance: No changes noted
--- NOTE | 2017-11-21 12:12 | [facility] Post Operative Brief Note ---
Immediate Operative Summary Operative Date Nov 21, 2017. Pre-Operative Diagnosis Persistent Low Grade cervical biopsy and Persistent High Grade HPV infection Post-Operative Diagnosis same Procedure(s) Performed Loop Electrosurgical Excision Procedure Surgeon Dr. Peter Cole Elephant Tamer Surgeon(s) 0 Estimated Blood Loss 0 Findings Consistent with Post-Op Diagnosis Specimens A. LEEP Specimen Drains None Anesthesia Type MAC Complication(s) none Disposition Accompanied Pt To Recovery: no Disposition: Recovery Room / PACU
--- NOTE | 2017-11-21 12:14 | Discharge Instructions ---
Discharge Instructions Date of Service Nov 21, 2017. Visit Reason for Visit: Cervical High Rish Hpv Test Positive Discharge Discharge Diagnosis / Problem: s/p LEEP Discharge Goals Goal(s): Specific goals Activity Recommendations Activity Limitations: per Instructions/Follow-up section Anesthesia . Post Anesthesia Instructions: If you have had General Anesthesia or IV Sedation: * Do not drive today. * Resume driving when surgeon permits. * Do not make important decisions or sign legal documents today. * Call surgeon for: 1. Temperature elevations greater than 101 degrees F. 2. Uncontrollable pain. 3. Excessive bleeding. 4. Persistent nausea and vomiting. 5. Medication intolerance (nausea, vomiting or rash). * For nausea and vomiting use only clear liquids such as: tea, soda, bouillon until nausea subsides, then gradually increase diet as tolerated. * If you have any concerns or questions, call your surgeon's office. If physician is unavailable and it is an emergency, call 911 or go to the nearest emergency room. . Instructions / Follow-Up Instructions / Follow-Up ACTIVITY RECOMMENDATIONS: * Avoid tampons, douching, hot tubs, pools, and intercourse for 4 weeks. * May shower as usual. * No strenuous activity for 24-48 hours. After 24-48 hours, you may do anything you feel like doing (driving and sports are okay). SPECIAL CARE INSTRUCTIONS: Special Diet: * Mild nausea may occur in the immediate post-operative period. * Take clear liquids such as tea, cola or bouillon until all nausea has subsided; you may then resume your normal diet. Special Care: * Light bleeding and vaginal spotting can last from a few days to 3-4 weeks. Call your doctor if bleeding becomes heavier than the heaviest part of your period. * Check your temperature twice a day for one week. If it goes above 100.4 degrees Fahrenheit (38.0 Celsius), notify your doctor. * Call your doctor's office for an appointment for 4 weeks after your surgery. FOLLOW-UP VISIT: Call your doctor's office for an appointment for 4 weeks after your surgery. Diet Recommendations Recommended Home Diet: no limitations, resume previous diet Procedures Procedures Performed: Loop Electrosurgical Excision Procedure Pending Studies Studies pending at discharge: no Medical Emergencies . Who to Call and When: Medical Emergencies: If at any time you feel your situation is an emergency, please call 911 immediately. . Non-Emergent Contact Non-Emergency issues call your: Personal Lines Sales Executive . . "Provider Documentation" section prepared by Gini Cole. .
--- NOTE | 2017-11-21 12:52 | OPERATIVE REPORT ---
DATE OF OPERATION: 11/21/2017 PREOPERATIVE DIAGNOSES: 1. Persistent HALINA 1. 2. 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 3. Inadequate colposcopy. POSTOPERATIVE DIAGNOSES: 1. Persistent HALINA 1. 2. 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 3. Inadequate colposcopy. PROCEDURE: LEEP. SURGEON: Gini Cole MD ANESTHESIA: Sedation and mask anesthesia. ESTIMATED BLOOD LOSS: None. FLUIDS: 500 mL. URINE OUTPUT: None. INDICATIONS: Radha is a 62-year-old white female with persistent low-grade abnormalities of the cervix and high risk HPV infection since 2015. She desires definitive surgical management. FINDINGS: Vagina appears normal. Cervix appears nulliparous with cervical stenosis. There is still some Monsel solution noted on the cervix. COMPLICATIONS: None. DRAINS: None. DISPOSITION: To recovery room in stable condition. PROCEDURE: The patient was taken to the operating room where she was identified verbally and by bracelet. She was sedated and placed in the [facility]-cane stirrups. Timeout was held identifying correct patient, procedure, positioning, allergies, and no need for preoperative antibiotic. The patient was draped with 2 moistened towels. A coated-speculum was placed into the vagina with suction hooked to this. Vinegar was placed on the cervix and using a loop, LEEP procedure was performed. Bleeding edges were attended to with Bovie electrocautery. All external edges were attended to with Bovie electrocautery. Astringent was placed on to the cervix and the procedure was terminated. All instruments were removed from vagina. All sponge, lap, and needle counts were correct x2. The patient tolerated the procedure well and was taken to recovery room in stable condition. I attest to the content of the Intraoperative Record and any orders documented therein. Any exception s are noted below.
[2017-11-21 13:03] VITALS: TEMP 36.6
--- NOTE | 2017-11-21 13:22 | Anesthesia Progress Nt - [facility] ---
Anesthesia Post Op Note Date & Time Nov 21, 2017 at 13:22 Vital Signs Pain Intensity: 0 Vital Signs Past 12 Hours Date Time Temp Pulse Resp B/P (MAP) Pulse Ox O2 Delivery O2 Flow Rate FiO2 11/21/17 13:03 36.6 54 16 146/78 (100) 98 Room Air 11/21/17 12:56 59 8 98 11/21/17 12:56 59 8 11/21/17 12:55 124/67 11/21/17 12:51 60 13 11/21/17 12:51 59 13 99 11/21/17 12:50 124/66 11/21/17 12:49 36.8 59 12 121/66 100 Diffusion Mask 6 11/21/17 12:46 62 9 11/21/17 12:46 62 9 100 11/21/17 12:45 121/66 11/21/17 12:42 61 7 100 11/21/17 12:42 62 7 11/21/17 12:40 122/68 11/21/17 12:37 63 9 11/21/17 12:37 63 9 100 11/21/17 12:36 65 12 11/21/17 12:36 66 12 100 11/21/17 12:35 113/60 11/21/17 12:31 65 15 100 11/21/17 12:31 65 15 11/21/17 12:30 107/57 11/21/17 12:26 69 12 99 11/21/17 12:26 69 12 11/21/17 12:25 99/58 11/21/17 12:21 65 12 11/21/17 12:21 64 12 100 11/21/17 12:20 88/49 11/21/17 12:19 103/53 11/21/17 12:17 89/55 11/21/17 12:16 72 11/21/17 12:16 36.7 67 8 89/55 99 Diffusion Mask 10 11/21/17 12:16 72 87 11/21/17 10:57 36.5 61 20 117/71 (86) 97 Room Air Notes Mental Status: alert / awake / arousable, participated in evaluation Pt Amnestic to Procedure: Yes Nausea / Vomiting: adequately controlled Pain: adequately controlled Airway Patency, RR, SpO2: stable & adequate BP & HR: stable & adequate Hydration State: stable & adequate Anesthetic Complications: no major complications apparent
[2017-11-21 13:32] VITALS: BP 149/78; PULSE 55; O2SAT 99
== END | disposition home or self-care (01) ==
LOC: X.SURG 10:32
PROVIDERS: ATTEND Obstetrics & Gynecology
DX: N87.0 Mild cervical dysplasia (principal); R87.810 Cervical high risk human papillomavirus (HPV) DNA test positive; N72 Inflammatory disease of cervix uteri; J45.909 Unspecified asthma, uncomplicated; M54.12 Radiculopathy, cervical region; E10.43 Type 1 diabetes mellitus with diabetic autonomic (poly)neuropathy; E10.3599 Type 1 diabetes mellitus with proliferative diabetic retinopathy without macular edema, unspecified eye; E10.51 Type 1 diabetes mellitus with diabetic peripheral angiopathy without gangrene; E78.5 Hyperlipidemia, unspecified; F41.8 Other specified anxiety disorders; I10 Essential (primary) hypertension; G47.33 Obstructive sleep apnea (adult) (pediatric); G25.81 Restless legs syndrome; E55.9 Vitamin D deficiency, unspecified; Z79.4 Long term (current) use of insulin; Z82.49 Family history of ischemic heart disease and other diseases of the circulatory system; Z96.41 Presence of insulin pump (external) (internal); Z79.899 Other long term (current) drug therapy; Z88.8 Allergy status to other drugs, medicaments and biological substances; Z88.2 Allergy status to sulfonamides; Z88.1 Allergy status to other antibiotic agents

== ENCOUNTER → 2017-12-10 | Outpatient (CLI) | payer OTHER ==
[~2017-12-10] MED LIST changes: -ACETIC ACID 4% (WHITE VINEGAR) 30ML ONE; -ATROPINE SULFATE 0.1 MG/ML 5ML SYR IV PRN; -EpHEDrine SULFATE INJ 50 MG/ML AMP IV PRN; -FENTANYL CITRATE INJ 50 MCG/1 ML 2 ML VIAL IV PRN; -FENTANYL CITRATE INJ 50 MCG/1 ML 2 ML VIAL ONE; -FERRIC SUBSULFATE 8 GM VIAL ONE; -IBUPROFEN 600 MG TAB PO PRN; -IODINE SOLN STRONG 14 ML ONE; -KETOROLAC TROMETHAMINE 30 MG/ML VIAL IV. PRN; -KETOROLAC TROMETHAMINE 30 MG/ML VIAL ONE; -LACTATED RINGER'S 1000ML 1,000 ML IV SCH; -LIDO 2%/EPINEPHRINE 1:100000 20 ML VIAL INFIL ONE; -LIDOCAINE HCL 2% 2 ML VIAL (20MG/ML) ONE; -MIDAZOLAM HCL 1 MG/ML 2ML VIAL ONE; -MoRPHine SULFATE 2 MG/ML CARP IV PRN; -MoRPHine SULFATE 4 MG/ML 1 ML CARP\\VIAL IV PRN; -ONDANSETRON INJ 2 MG/ML 2 ML VIAL ONE; -OXYCODONE/ACETAMINOPHEN 5-325 TAB PO PRN; -PROPOFOL IV EMULSION 10 MG/ML 20 ML VIAL IV ONE; -SODIUM CHLORIDE 0.9% 1000ML 1,000 ML IV SCH
[2017-12-10 18:40] LABS: ALBUMIN 4.1 gm/dl (3.4-5.0); ALKALINE PHOSPHATASE 110 U/L (45-117); ALT/SGPT 45 U/L (12-78); AST/SGOT 32 U/L (15-37); BLOOD UREA NITROGEN 9 mg/dl (7-18); CALCIUM 8.4 mg/dl (8.5-10.1); CARBON DIOXIDE 35 mmol/L (21-32); CHOLESTEROL 163 mg/dl (0-200); CREATININE 0.79 mg/dl (0.60-1.20); GLUCOSE 42 mg/dl (70-99); LDL CHOLESTEROL CALCULATED 60 mg/dl; POTASSIUM 3.3 mmol/L (3.5-5.1); SODIUM 140 mmol/L (136-145); TOTAL PROTEIN 6.6 gm/dl (6.4-8.2)
[2017-12-11 07:13] LABS: HEMOGLOBIN A1C 7.1 % (4.5-5.6)
== END | disposition home or self-care (01) ==
LOC: C.LABMFLN 11:47
PROVIDERS: ATTEND Family Medicine
DX: E03.9 Hypothyroidism, unspecified (principal); E78.5 Hyperlipidemia, unspecified; R42 Dizziness and giddiness; F41.8 Other specified anxiety disorders

== ENCOUNTER → 2017-12-17 | Outpatient (CLI) | payer OTHER | END | disposition home or self-care (01) | LOC: C.LABMFLN 15:05 | PROVIDERS: ATTEND Family Medicine | DX: F31.9 Bipolar disorder, unspecified (principal) ==

== ENCOUNTER → 2018-01-01 | Outpatient (CLI) | payer OTHER | END | disposition home or self-care (01) | LOC: C.LABMFLN 14:15 | PROVIDERS: ATTEND Family Medicine | DX: E87.6 Hypokalemia (principal) ==

== ENCOUNTER → 2018-03-11 | Outpatient (CLI) | payer OTHER ==
[~2018-03-11] MED LIST changes: -AMLO-110 PO; +AMLO5TAB3 PO
[2018-03-11 18:47] LABS: BLOOD UREA NITROGEN 10 mg/dl (7-18); CALCIUM 8.8 mg/dl (8.5-10.1); CARBON DIOXIDE 35 mmol/L (21-32); GLUCOSE 85 mg/dl (70-99); SODIUM 136 mmol/L (136-145)
[2018-03-12 06:07] LABS: HEMOGLOBIN A1C 7.1 % (4.5-5.6)
== END | disposition home or self-care (01) ==
LOC: C.LABMFLN 12:27
PROVIDERS: ATTEND Family Medicine
DX: E11.42 Type 2 diabetes mellitus with diabetic polyneuropathy (principal)

== ENCOUNTER 2019-10-31 08:45 | Inpatient (IN) ==
--- NOTE | 2019-10-09 14:29 | PAT Medication Instructions ---
Medication Instructions Date of Service October 09, 2019 Home Medications Medication Instructions Recorded glucagon (human recombinant) 1 mg 1 mg SQ Q20M PRN #1 ea 01/16/19 solution for injection diazepam 5 mg tablet 5 mg PO BID PRN #60 tab 05/08/19 ropinirole 0.5 mg tablet 0.5 mg PO QPM #90 tab 06/25/19 estradiol 1 gm PV DAILY #42.5 gm 08/20/19 hydroxyzine HCl 25 mg tablet 25 mg PO TID PRN #270 tab 09/01/19 bupropion HCl 150 mg tablet,12 hr 150 mg PO BID #180 ea 09/16/19 sustained-release irbesartan 150 mg tablet 150 mg PO QAM #90 tab 09/16/19 fluconazole 150 mg tablet 150 mg PO Q3D #2 tab 10/02/19 pantoprazole 20 mg tablet,delayed 20 mg PO QAM #90 tab 10/07/19 release Accu-Chek Fastclix Lancet Drum #600 ea NS 10/09/19 Contour Next Test Strips #600 ea NS 10/09/19 amlodipine 2.5 mg tablet 2.5 mg PO QAM atorvastatin 10 mg tablet 10 mg PO HS ] desonide 0.05 % topical cream 1 appln TOPICAL BID PRN diclofenac sodium 1 % topical gel 2 gm TOP BID PRN melatonin 5 mg tablet 5 mg PO HS sumatriptan succinate 100 mg tablet 100 mg PO UD PRN triamcinolone acetonide 0.5 % topical cream 1 appln TOPICAL TID PRN glucagon (human recombinant) 1 mg solution for injection 1 mg SQ Q20M PRN diazepam 5 mg tablet 5 mg PO BID PRN clobetasol 0.05 % scalp solution 1 appln TOPICAL DAILY PRN ropinirole 0.5 mg tablet 0.5 mg PO QPM terconazole 0.4 % vaginal cream 1 appl PV DAILY PRN trazodone 50 mg tablet 50 - 100 mg PO HS estradiol 1 gm PV DAILY hydroxyzine HCl 25 mg tablet 25 mg PO TID PRN insulin aspart U-100 100 unit/mL subcutaneous solution 20 - 40 units SUBCUT .FOR INSULIN PUMP~20- Krill Oil ([employer] 3 and 6) 1 cap PO QDD Lantus U-100 Insulin 100 units SQ UD PRN levothyroxine 100 mcg PO QAM losartan 50 mg PO QAM bupropion HCl 150 mg tablet,12 hr sustained-release 150 mg PO BID irbesartan 150 mg tablet 150 mg PO QAM fluconazole 150 mg tablet 150 mg PO Q3D biotin-keratin [Biotin Plus Keratin] 1 tab PO QDD calcium carb-D3-mag ox-zinc ox 1 tab PO QDD cholecalciferol (vitamin D3) [Vitamin D3] 5,000 unit PO QDD escitalopram oxalate 20 mg PO QPM insulin aspart U-100 [Novolog U-100 Insulin aspart] 20 - 40 unit SUBCUT DAILY methylsulfonylmethane [MSM] 1,000 mg PO QDD valacyclovir 500 mg PO DAILY PRN vitamin B complex-folic acid [Super B Maxi Complex] 1 tab PO QDD pantoprazole 20 mg tablet,delayed release 20 mg PO QAM Continue as directed fluconazole 150 mg tablet 150 mg PO Q3D Lantus U-100 Insulin 100 units SQ UD PRN (if needed for pump failure) ASK your surgeon for instructions estradiol 1 gm PV DAILY STOP taking 2 weeks before surgery (or as soon as possible if surgery is within 2 weeks) Krill Oil ([employer] 3 and 6) 1 cap PO QDD biotin-keratin [Biotin Plus Keratin] 1 tab PO QDD methylsulfonylmethane [MSM] 1,000 mg PO QDD STOP taking 24 hours before surgery desonide 0.05 % topical cream 1 appln TOPICAL BID PRN diclofenac sodium 1 % topical gel 2 gm TOP BID PRN triamcinolone acetonide 0.5 % topical cream 1 appln TOPICAL TID PRN clobetasol 0.05 % scalp solution 1 appln TOPICAL DAILY PRN terconazole 0.4 % vaginal cream 1 appl PV DAILY PRN estradiol 1 gm PV DAILY ropinirole 0.5 mg tablet 0.5 mg PO QPM DO NOT take the morning of surgery hydroxyzine HCl 25 mg tablet 25 mg PO TID PRN losartan 50 mg PO QAM irbesartan 150 mg tablet 150 mg PO QAM Take morning of surgery With a small sip of water, OTHERWISE NOTHING TO EAT OR DRINK AFTER MIDNIGHT: amlodipine 2.5 mg tablet 2.5 mg PO QAM sumatriptan succinate 100 mg tablet 100 mg PO UD PRN (if needed) glucagon (human recombinant) 1 mg solution for injection 1 mg SQ Q20M PRN (if needed) diazepam 5 mg tablet 5 mg PO BID PRN (if needed) levothyroxine 100 mcg PO QAM bupropion HCl 150 mg tablet,12 hr sustained-release 150 mg PO BID valacyclovir 500 mg PO DAILY PRN (if needed) pantoprazole 20 mg tablet,delayed release 20 mg PO QAM Take evening before surgery atorvastatin 10 mg tablet 10 mg PO HS melatonin 5 mg tablet 5 mg PO HS sumatriptan succinate 100 mg tablet 100 mg PO UD PRN (if needed) glucagon (human recombinant) 1 mg solution for injection 1 mg SQ Q20M PRN (if needed) diazepam 5 mg tablet 5 mg PO BID PRN (if needed) trazodone 50 mg tablet 50 - 100 mg PO HS hydroxyzine HCl 25 mg tablet 25 mg PO TID PRN (if needed) insulin aspart U-100 100 unit/mL subcutaneous solution 20 - 40 units SUBCUT .FOR INSULIN PUMP~20- bupropion HCl 150 mg tablet,12 hr sustained-release 150 mg PO BID calcium carb-D3-mag ox-zinc ox 1 tab PO QDD cholecalciferol (vitamin D3) [Vitamin D3] 5,000 unit PO QDD escitalopram oxalate 20 mg PO QPM valacyclovir 500 mg PO DAILY PRN (if needed) vitamin B complex-folic acid [Super B Maxi Complex] 1 tab PO QDD Insulin Dependent Diabetic Patients For insulin pump, morning of surgery set insulin pump to basal setting and do not bolus. Other Notes If you have any questions please call us at [phone] or [phone] or [phone] or [phone]
--- NOTE | 2019-10-10 15:48 | Anesthesiology Consultation ---
Date of Service October 10, 2019 Assessment & Plan (1) Encounter for pre-operative examination: CHECK BSG AM DOS Chart Review Chart Review: Acceptable Risk for Surgery and Patient seen in Pre Admission Testing Teaching & Discussion Instructed NPO after midnight before surgery, except medications with 15 cc of water. Medication instructions provided according to the PAT guidelines. History Surgery Operation Date: 10/31/19 13:00 Proposed Procedures p Total Abdominal Hysterectomy, Removal of Uterus, Both Fallopian Tubes and Ovaries - Gini Cole MD, FACOG Height/Weight Height: 5 ft 5.5 in Weight: 57.6 kg Allergies Allergy/AdvReac Type Severity Reaction Status Date / Time cefaclor Allergy Intermediate Rash, hives Verified 10/09/19 14:30 Cephalosporins Allergy Intermediate Rash or Verified 10/09/19 14:30 hives Sulfa (Sulfonamide Allergy Intermediate Rash or Verified 10/09/19 14:30 Antibiotics) hives adhesive Allergy Unknown Skin Verified 10/09/19 14:30 irritation levofloxacin [From Levaquin] Allergy Unknown Unknown Verified 10/03/19 11:12 nickel Allergy Unknown Skin Verified 10/09/19 14:30 irritation clavulanic acid AdvReac Intermediate Severe Verified 10/09/19 14:30 diarrhea Cipro AdvReac Mild GI SYMPTOMS Verified 11/21/17 13:30 ciprofloxacin AdvReac Mild GI symptoms Verified 10/09/19 14:30 amoxicillin AdvReac Unknown Severe Verified 10/09/19 14:30 diarrhea Medications Home Medications Medication Instructions Recorded Confirmed Last Taken amlodipine 2.5 mg tablet 2.5 mg PO QAM #90 tab 01/14/19 10/10/19 09/18/19 08:00 atorvastatin 10 mg tablet 10 mg PO HS #90 tab 01/14/19 10/10/19 09/18/19 21:00 desonide 0.05 % topical cream 1 appln TOPICAL BID PRN #1 gm 01/14/19 10/10/19 09/18/19 08:00 diabetic supplies, miscellan. #1 ea 01/14/19 10/10/19 Unknown diclofenac sodium 1 % topical gel 2 gm TOP BID PRN gm 01/14/19 10/10/19 09/18/19 08:00 infusion set for insulin pump #2 ea 01/14/19 10/10/19 Unknown insulin syringe-needle U-100 0.5 #10 ea 01/14/19 10/10/19 Unknown mL 31 gauge x 5/16" lancets #50 ea 01/14/19 10/10/19 Unknown melatonin 5 mg tablet 5 mg PO HS tab 01/14/19 10/10/19 09/18/19 08:00 sumatriptan succinate 100 mg tablet 100 mg PO UD PRN #27 tab 01/14/19 10/10/19 Unknown triamcinolone acetonide 0.5 % 1 appln TOPICAL TID PRN #80 gm 01/14/19 10/10/19 09/18/19 08:00 topical cream glucagon (human recombinant) 1 mg 1 mg SQ Q20M PRN #1 ea 01/16/19 10/10/19 Unknown solution for injection diazepam 5 mg tablet 5 mg PO BID PRN #60 tab 05/08/19 10/10/19 09/18/19 21:00 clobetasol 0.05 % scalp solution 1 appln TOPICAL DAILY PRN #50 ml 06/10/19 10/10/19 09/18/19 08:00 ropinirole 0.5 mg tablet 0.5 mg PO QPM #90 tab 06/25/19 10/10/19 09/18/19 21:00 terconazole 0.4 % vaginal cream 1 appl PV DAILY PRN #1 gm 07/20/19 10/10/19 09/18/19 08:00 trazodone 50 mg tablet 50 - 100 mg PO HS tab 07/20/19 10/10/19 09/18/19 21:00 estradiol 1 gm PV DAILY #42.5 gm 08/20/19 10/10/19 09/18/19 08:00 hydroxyzine HCl 25 mg tablet 25 mg PO TID PRN #270 tab 09/01/19 10/10/19 09/18/19 21:00 insulin aspart U-100 100 unit/mL 20 - 40 units SUBCUT .FOR INSULIN 09/02/19 10/10/19 09/18/19 21:00 subcutaneous solution PUMP~20- #4 ml .3 units Krill Oil ([employer] 3 and 6) 1 cap PO QDD 09/11/19 10/10/19 09/18/19 08:00 Lantus U-100 Insulin 100 units SQ UD PRN 09/11/19 10/10/19 Unknown levothyroxine 100 mcg PO QAM 09/11/19 10/10/19 09/19/19 06:30 losartan 50 mg PO QAM 09/11/19 10/10/19 09/18/19 08:00 bupropion HCl 150 mg tablet,12 hr 150 mg PO BID #180 ea 09/16/19 10/10/19 09/18/19 21:00 sustained-release irbesartan 150 mg tablet 150 mg PO QAM #90 tab 09/16/19 10/10/19 09/18/19 08:00 fluconazole 150 mg tablet 150 mg PO Q3D #2 tab 10/02/19 10/10/19 Unknown biotin-keratin [Biotin Plus 1 tab PO QDD 10/03/19 10/10/19 Unknown Keratin] calcium carb-D3-mag ox-zinc ox 1 tab PO QDD 10/03/19 10/10/19 Unknown cholecalciferol (vitamin D3) 5,000 unit PO QDD 10/03/19 10/10/19 Unknown [Vitamin D3] escitalopram oxalate 20 mg PO QPM 10/03/19 10/10/19 Unknown insulin aspart U-100 [Novolog 20 - 40 unit SUBCUT DAILY 10/03/19 10/10/19 Unknown U-100 Insulin aspart] methylsulfonylmethane [MSM] 1,000 mg PO QDD 10/03/19 10/10/19 Unknown valacyclovir 500 mg PO DAILY PRN 10/03/19 10/10/19 Unknown vitamin B complex-folic acid 1 tab PO QDD 10/03/19 10/10/19 Unknown [Super B Maxi Complex] pantoprazole 20 mg tablet,delayed 20 mg PO QAM #90 tab 10/07/19 10/10/19 Unknown release Accu-Chek Fastclix Lancet Drum #600 ea NS 10/09/19 10/10/19 Unknown Contour Next Test Strips #600 ea NS 10/09/19 10/10/19 Unknown Past Medical History Medical History (Updated 10/13/19 @ 09:04 by Fidel Yoo) Anxiety Asthma Controlled type 1 diabetes mellitus with diabetic neuropathy, with long-term current use of insulin Insulin pump. Depression Diabetic peripheral neuropathy feet Dyslipidemia Gastroparesis Hx of herpes genitalis Hypertension Hypothyroid Insulin pump in place Labyrinthine dysfunction, bilateral occasional vertigo Migraine headache Obstructive sleep apnea Pt stopped using CPAP arbitrarily; reports minor snoring. Osteoarthritis, multiple sites Raynauds syndrome Restless leg syndrome Exercise / Class Metabolic Activity II 4-5 Yardwork/Stairs/Walk up hill (Denies CP or SOB with 1 FOS) Past Family History Family History Father Aortic aneurysm Mother Dementia Uncle FHx: diabetes mellitus Daughter FHx: diabetes mellitus Uncle FHx: diabetes mellitus Past Surgical History Surgical History History of carpal tunnel release of both wrists History of endometrial ablation History of hysteroscopy History of laser refractive surgery FOR DIABETIC RETINOPATHY History of loop electrical excision procedure (LEEP) Hx of appendectomy Hx of section X2 Hx of dilation and curettage Hx of elbow surgery RIGHT AND LEFT Hx of hand surgery X3 TRIGGER FINGER Hx of tonsillectomy Past Anesthesia History No Hx of Anesthesia Complications and No Family Hx of Anesthesia Complications History of PONV No Hx of PONV and No Hx of Motion Sickness Social History Smoking Status: Never smoker Do You Dip or Chew Tobacco: No Hx Alcohol Use: Yes Alcohol type: wine alcohol intake frequency: a few times a week Hx Substance Use: No substance use type: does not use Review of Systems Pt denies any recent chest pain, shortness of breath, palpitations, cough, fever or URI. Physical Exam Vital Signs BP: 121/79 P: 61bpm SPO2: 99% RA T: 97.6 F R: 16 ENMT Mouth: + dental restorations (few crowns); no chipped teeth and no loose teeth Thyromental Distance: < 3.5 Finger Breadths (3) Mallampati Class: II Neck normal visual inspection; neck extension not limited Respiratory normal respiratory effort Auscultation: lungs clear to auscultation bilaterally Cardiovascular Rate/Rhythm: regular rate and regular rhythm Heart Sounds: no murmur Vessels: no carotid bruit Testing Laboratory Results 10/10/19 16:04 10/10/19 16:04 Hemoglobin A1c 7.3 % (4.5-5.6) H 10/10/19 16:04 Blood Type O Positive 10/10/19 16:04 Antibody Screen NEGATIVE 10/10/19 16:04 Electrocardiogram Date: 02/28/20 Findings: + NSR @ (60bpm with 1st degree AV block) Right axis deviation. iRBBB. No significant change from 11/19/17 EKG.
[2019-10-10 16:29] LABS: Basophils # (auto) 0.02 K/uL (0-0.2); Basophils % (auto) 0.3 %; Eosinophils # (auto) 0.16 K/uL (0-0.5); Eosinophils % (auto) 2.2 %; Hematocrit (blood only) 38.8 % (37-47); Hemoglobin 13.7 g/dL (12.0-16.0); Immature Granulocytes # (auto) 0.01 K/uL (0.00-0.02); Immature Granulocytes % (auto) 0.1 %; Lymphocytes # (auto) 1.54 K/uL (1.2-3.4); Lymphocytes % (auto) 21.1 %; Mean Corpuscular Hemoglobin 33.4 pg (25-34); Mean Corpuscular Hgb Conc 35.3 g/dL (32-36); Mean Corpuscular Volume 94.6 fL (80-100); Mean Platelet Volume 9.8 fL (7.4-10.4); Monocytes # (auto) 0.41 K/uL (0.11-0.59); Monocytes % (auto) 5.6 %; Neutrophils # (auto) 5.15 K/uL (1.4-6.5); Neutrophils % (auto) 70.7 %; Platelet Count 228 K/uL (130-400); RDW Coefficient of Variation 11.7 % (11.5-14.5); RDW Standard Deviation 40.2 fL (36.4-46.3); White Blood Count 7.29 K/uL (4.8-10.8)
[2019-10-10 16:35] LABS: Calcium 9.1 mg/dl (8.5-10.1); Creatinine Clr Calc Pharmacy 65.4 ml/min; Est GFR (African American) 91.7; Est GFR (Non-African American) 79.1
--- NOTE | 2019-10-10 18:39 | Electrocardiogram Report ---
Test Reason : Blood Pressure : / mmHG Vent. Rate : 060 BPM Atrial Rate : 060 BPM P-R Int : 220 ms QRS Dur : 094 ms QT Int : 430 ms P-R-T Axes : 081 175 071 degrees QTc Int : 430 ms Sinus rhythm with 1st degree A-V block Right axis deviation Incomplete right bundle branch block Abnormal ECG When compared with ECG of 19-NOV-2017 17:18, No significant change was found Confirmed by Elmer Farley ([id number]) on 10/10/2019 6:39:18 PM Referred By: Gini Cole Confirmed By:Clive Farley
[2019-10-11 06:36] LABS: Estimated Average Glucose 163 mg/dl; Hemoglobin A1C 7.3 % (4.5-5.6)
[~2019-10-31 08:45] MED LIST changes: -ALLERGY MED PO; -AMLO5TAB3 PO; -ATOR10TA82 PO; -BUPR-79 PO; -CHOL1CAP57 PO; +CLINDAMYCIN 600 MG/54 ML BAG IV SCH; -DIAZ-165 PO; -ESCI1TAB10 PO; -FLUT0.15 NAE; +GENTAMICIN SULFATE 80 MG in DEXTROSE 5% 100 ML IV SCH; -KETO1DRO17 OPB; +LACTATED RINGER'S 1,000 ML IV SCH; -LEVO88TA3 PO; -LISI-725 PO; +LR 15ML/HR IV SCH; -MELA1TAB3 PO; -MULT-506 PO; -NVLG SQ; -POLY1SOL6 OPB; -POTA-639 PO; -SUMA100T16 PO; -TRAZ50TA35 PO; -VALA500T60 PO
[2019-10-31] MEDS ORDERED: ePHEDrine sulfate 50 MG/ML AMP IV PRN ×2 (09:53→14:29)
[2019-10-31] MEDS ORDERED: PHENYLEPHRINE 100MCG/ML 5ML SYR IV PRN (09:53)
[2019-10-31] MEDS ORDERED: MEPERIDINE HCL 25 MG/ML CARP/VIAL IV PRN ×2 (09:53→14:29)
[2019-10-31] MEDS ORDERED: LABETALOL HCL IV 5 MG/ML 20ML IV PRN (09:53)
[2019-10-31] MEDS ORDERED: ONDANSETRON INJ 2 MG/ML 2 ML VIAL IV PRN ×2 (09:53→14:29)
[2019-10-31] MEDS ORDERED: ATROPINE SULFATE 0.1 MG/ML 10ML SYR IV PRN (09:53)
[2019-10-31] MEDS ORDERED: fentaNYL citrate 100 MCG/2 ML VIAL IV PRN (09:53)
[2019-10-31] MEDS ORDERED: HYDROmorphone INJ 1 MG/ML SYRINGE IV PRN (09:53)
[2019-10-31] MEDS ORDERED: ROCURONIUM BROMIDE 10 MG/ML 5 ML VIAL ONE (11:00)
[2019-10-31] MEDS ORDERED: GLUCAGON FOR INJ 1 MG VIAL IM PRN (11:00)
[2019-10-31] MEDS ORDERED: PROPOFOL IV EMULSION 10 MG/ML 20 ML VIAL IV ONE (11:00)
[2019-10-31] MEDS ORDERED: GLUCOSE 40% GEL 15 GM TUBE PO PRN (11:00)
[2019-10-31] MEDS ORDERED: fentaNYL citrate 100 MCG/2 ML VIAL ONE (11:00)
[2019-10-31] MEDS ORDERED: LIDOCAINE HCL 2% 2 ML VIAL/AMP(20MG/ML) INFIL ONE (11:00)
[2019-10-31] MEDS ORDERED: MIDAZOLAM HCL 1 MG/ML 2ML VIAL ONE (11:00)
[2019-10-31] MEDS ORDERED: NEOSTIGMINE METHYLSULFATE 5 MG/5 ML SYR ONE (11:00)
[2019-10-31] MEDS ORDERED: GLYCOPYRROLATE 0.2 MG/ML VIAL ONE (11:00)
[2019-10-31] MEDS ORDERED: DEXTROSE 50% 50 ML SYRINGE IV PRN (11:00)
[2019-10-31] MEDS ORDERED: GLUCOSE 10 TABS/TUBE PO PRN (11:00)
[2019-10-31] MEDS ORDERED: ONDANSETRON INJ 2 MG/ML 2 ML VIAL ONE ×2 (11:00→11:20)
[2019-10-31] MEDS ORDERED: CARBOHYDRATES FOR HYPOGLYCEMIA PO PRN (11:00)
[2019-10-31] MEDS ORDERED: INSULIN ASPART 100 UNITS/ML VIAL SC PRN (11:15)
[2019-10-31] MEDS ORDERED: PHENYLEPHRINE 100MCG/ML 5ML SYR ONE ×2 (11:19)
[2019-10-31] MEDS ORDERED: NovoLOG INSULIN PUMP SCH (11:30)
--- NOTE | 2019-10-31 11:57 | History & Physical Bridge Note ---
Date of Service October 31, 2019 History & Physical Bridge Note I have examined the patient, reviewed the History & Physical and in the interval since the performance of the History & Physical I have noted the following changes of clinical significance: no changes noted
[2019-10-31] MEDS ORDERED: MoRPHine SULFATE PF 1 MG/ML 10 ML AMP/VIAL ONE (12:39)
--- NOTE | 2019-10-31 14:04 | Post Operative Brief Note ---
PG Immediate Post Op with CF Date of Surgery October 31, 2019 Pre & Post Diagnosis Operation Date: 10/31/19 10:40 Pre-Op Diagnosis: 1. Cervical High Risk Human Papilomavirus test positive 2. High Grade Squamous Intraepithelial Lesion on Pap smear of Cervix 3. Inadequate evaluation Post-Op Diagnosis: 1. Cervical High Risk Human Papilomavirus test positive 2. High Grade Squamous Intraepithelial Lesion on Pap smear of Cervix 3. inadequate evaluation I identified the patient and participated in the time-out.: Yes Procedure Operation Date: 10/31/19 10:40 Actual Procedures p Total Abdominal Hysterectomy Bilateral Salpingo-oophorectomy(Bilateral) - Gini Cole MD, FACOG Surgeon Gini Cole MD, FACOG [facility] Dr. Mancia Estimated Blood Loss 50 Findings Consistent with Post-Op Diagnosis Specimens Specimen Description: A: Uterus, cervix, bilateral ovaries and Fallopian tubes Drains Liu Catheter
[2019-10-31] MEDS ORDERED: bisacodyL 10 MG SUPP PR PRN (14:14)
[2019-10-31] MEDS ORDERED: PROMETHAZINE HCL 25 MG in SODIUM CHLORIDE 0.9% 50 ML IV PRN (14:14)
[2019-10-31] MEDS ORDERED: IBUPROFEN 600 MG TAB PO PRN (14:14)
[2019-10-31] MEDS ORDERED: NALOXONE HCL 1 MG in SODIUM CHLORIDE 0.9% 1000ML 1,000 ML IV PRN (14:29)
[2019-10-31] MEDS ORDERED: MoRPHine SULFATE PF 1 MG/ML 10 ML AMP/VIAL INT SPINAL ONE (14:29)
[2019-10-31] MEDS ORDERED: NALBUPHINE HCL INJ 10 MG/ML AMP IV PRN (14:29)
[2019-10-31] MEDS ORDERED: DiphenhydrAMINE HCL 50 MG/ML VIAL IV PRN (14:29)
[2019-10-31] MEDS ORDERED: LACTATED RINGER'S 500 ML IV PRN (14:29)
[2019-10-31] MEDS ORDERED: HYDROmorphone INJ 0.5 MG/0.5 ML SYR IV PRN (14:29)
[2019-10-31] MEDS ORDERED: NALOXONE HCL 0.08 MG in SYRINGE 1.8 ML IV PRN (14:29)
[2019-10-31] MEDS ORDERED: NALOXONE HCL 0.4 MG/1 ML VIAL/CARP IV PRN (14:29)
[2019-10-31] MEDS ORDERED: DC INTRASPINAL MORPHINE SCH (14:30)
[2019-10-31] MEDS ORDERED: SODIUM CHLORIDE 0.9% 1000ML 1,000 ML IV SCH (14:30)
[2019-10-31] MEDS ORDERED: NO NARCOTICS OR SEDATIVES SCH (14:30)
--- NOTE | 2019-10-31 14:53 | Anesthesiology Progress Note ---
Date of Service October 31, 2019 Anesthesia Post Procedure Vital Signs Vital Signs: Temp Pulse Pulse Resp BP BP Pulse Ox 10/31/19 14:40 80 12 127/59 L 100 10/31/19 14:30 74 14 123/55 L 100 10/31/19 14:20 77 14 128/56 L 100 10/31/19 14:10 37.0 C 75 12 127/63 100 10/31/19 09:52 36.8 C 88 20 137/71 98 Transfer of Care Handoff Completed per policy Notes Mental Status: alert / awake / arousable Patient Amnestic to Procedure: Yes Nausea / Vomiting: adequately controlled Pain: adequately controlled Airway Patency, RR, SpO2: stable & adequate BP & HR: stable & adequate Hydration State: stable & adequate Anesthetic Complications: no major complications apparent and Pt Satisfied with anesthetic care Notes: The patient is awake and stable. She will program her insulin pump to manage her BSG.
--- NOTE | 2019-10-31 15:44 | Hospitalist Consultation ---
Date of Consultation October 31, 2019 Assessment & Plan (1) HSIL (high grade squamous intraepithelial lesion) on Pap smear of cervix: Ms. Floyd is a 63 year old female with a past medical history of DM1 with an insulin pump, Kiara's thyroiditis, osteopenia, FABIAN, bipolar disorder, depression, YO, hypertension, and hyperlipidemia who underwent a Total Abdominal Hysterectomy and Bilateral Salpingo-oophorectomy with Dr. Cole today. The medicine team was consulted to assist with post-operative management. s/p BARRY and b/l salpingo-oopherectomy -patient had a history of high-grade squamous intraepithelial lesion & was positive for high risk HPV -pain well controlled post-operatively -post operative management per STAVE BOLT EQUALIZER -CBC and BMP ordered for AM labs DM1 -continue insulin pump -> basal settings provided to patient from May 2019 visit w/ ADAMS Mckeon (with whom patient follows) -> patient currently on clear liquid diet -> maintain basal rate for glucose control, aiming for glucose <200 -> once patient advances diet, continue prior carb coverage ratios for bolus regimen -most recent HbA1c was 7.4% in July 2019 Hypertension -continue home amlodipine and losartan Hypothyroidism -continue home synthroid -most recent TSH was 0.26 in Jul 2019. Patient has a recheck ordered w/PCP given the fact that it was low Bipolar disorder/depression/FABIAN -continue home escitalopram, bupropion, prn hydroxyzine, prn trazodone and prn diazepam -patient reports her mood has been stable on this regimen RLS -continue home ropinirole Migraines -continue home prn sumatriptan Recent dilation of esophageal stricture/Esophagitis/Gastritis -continue home protonix -avoidNSAID use YO -patient states she does not wear CPAP at home Vitamin D Deficiency/Osteopenia -continue home calcium and Vitamin D supplementation Thank you for the consult. Please call with any questions. Medicine will continue to follow along. (2) Gastritis: (3) Insulin pump in place: (4) Depression: (5) Vitamin D deficiency: (6) Restless legs syndrome: (7) Osteopenia: (8) Kiara's thyroiditis: (9) Generalized anxiety disorder: (10) Bipolar affective disorder: (11) Asthma: (12) Dyslipidemia: (13) Gastroparesis: (14) Hypertension: (15) Obstructive sleep apnea: (16) Hypothyroid: Supervising Physician Co-Signing Physician Notes I personally examined the patient and verified all valadez points of history and exam, discussed case, and agree with decision making with Dr Owens. feeling reasonable post op - a little woozy still and some abdominal pain but not bad. discussed insulin management at home- reviewed her most recent documented basal rates vitals noted nad heent nc at mmm breathing unlabored no accessory muscles good effort skin no rashes no pallor or icterus DM1 - insulin pump management, follow closely/fingersticks otherwise as above History of Present Illness Reason for Consultation: Diabetes Management Post-operatively Requesting Physician: Dr. Cole Attending Physician: Dr. Fontenot History of Present Illness Ms. Floyd is a 63 year old female with a past medical history of DM1 with an insulin pump, Kiara's thyroiditis, osteopenia, FABIAN, bipolar disorder, depression, YO, hypertension, hyperlipidemia and asthma who underwent a Total Abdominal Hysterectomy and Bilateral Salpingo-oophorectomy with Dr. Cole today. The medicine team was consulted for post-operative medical management. Ms. Floyd was seen and examined at the bedside following her procedure. She notes that her pain is well controlled, and she has mild pain around her incision sites. She denies chest pain, shortness of breath, nausea or vomiting. She has not yet had anything to eat, but has been tolerating ice chips without any problem. With regards to her history of DM1, she has an insulin pump in place. She follows with Margarette Salazar for management of her pump. She states she was instructed to turn down her pump yesterday, in preparation for surgery, and reports it was as low as 0.1 units/hour for the basal rate. She denies any history of hypoglycemic episodes. Allergies Allergy/AdvReac Type Severity Reaction Status Date / Time cefaclor Allergy Intermediate Rash, hives Verified 10/31/19 09:25 Cephalosporins Allergy Intermediate Rash or Verified 10/31/19 09:25 hives Sulfa (Sulfonamide Allergy Intermediate Rash or Verified 10/31/19 09:25 Antibiotics) hives adhesive Allergy Unknown Skin Verified 10/31/19 09:25 irritation levofloxacin [From Levaquin] Allergy Unknown Unknown Verified 10/31/19 09:25 nickel Allergy Unknown Skin Verified 10/31/19 09:25 irritation clavulanic acid AdvReac Intermediate Severe Verified 10/31/19 09:25 diarrhea Cipro AdvReac Mild GI SYMPTOMS Verified 11/21/17 13:30 ciprofloxacin AdvReac Mild GI symptoms Verified 10/31/19 09:25 amoxicillin AdvReac Unknown Severe Verified 10/31/19 09:25 diarrhea Home Medications Home Medications Medication Instructions Recorded Confirmed Type amlodipine 2.5 mg tablet 2.5 mg PO QAM #90 tab 01/14/19 10/15/19 History desonide 0.05 % topical cream 1 appln TOPICAL BID PRN #1 gm 01/14/19 10/31/19 History diabetic supplies, miscellan. #1 ea 01/14/19 10/15/19 History diclofenac sodium 1 % topical gel 2 gm TOP BID PRN gm 01/14/19 10/31/19 History infusion set for insulin pump #2 ea 01/14/19 10/15/19 History insulin syringe-needle U-100 0.5 #10 ea 01/14/19 10/15/19 History mL 31 gauge x 5/16" lancets #50 ea 01/14/19 10/15/19 History melatonin 5 mg tablet 5 mg PO HS tab 01/14/19 10/15/19 History sumatriptan succinate 100 mg tablet 100 mg PO UD PRN #27 tab 01/14/19 10/31/19 History triamcinolone acetonide 0.5 % 1 appln TOPICAL TID PRN #80 gm 01/14/19 10/31/19 History topical cream glucagon (human recombinant) 1 mg 1 mg SQ Q20M PRN #1 ea 01/16/19 10/31/19 Rx solution for injection clobetasol 0.05 % scalp solution 1 appln TOPICAL DAILY PRN #50 ml 06/10/19 10/31/19 History ropinirole 0.5 mg tablet 0.5 mg PO QPM #90 tab 06/25/19 10/31/19 Rx terconazole 0.4 % vaginal cream 1 appl PV DAILY PRN #1 gm 07/20/19 10/31/19 History trazodone 50 mg tablet 50 - 100 mg PO HS tab 07/20/19 10/31/19 History estradiol 1 gm PV DAILY #42.5 gm 08/20/19 10/31/19 Rx hydroxyzine HCl 25 mg tablet 25 mg PO TID PRN #270 tab 09/01/19 10/31/19 Rx insulin aspart U-100 100 unit/mL 20 - 40 units SUBCUT .FOR INSULIN 09/02/19 0 10/31/19 History subcutaneous solution PUMP~20- #4 ml Krill Oil (Nageezi 3 and 6) 1 cap PO QDD 09/11/19 10/31/19 History Lantus U-100 Insulin 100 units SQ UD PRN 09/11/19 10/31/19 History levothyroxine 100 mcg PO QAM 09/11/19 10/31/19 History bupropion HCl 150 mg tablet,12 hr 150 mg PO BID #180 ea 09/16/19 10/31/19 Rx sustained-release biotin-keratin [Biotin Plus 1 tab PO QDD 10/03/19 10/31/19 History Keratin] calcium carb-D3-mag ox-zinc ox 1 tab PO QDD 10/03/19 10/31/19 History cholecalciferol (vitamin D3) 5,000 unit PO QDD 10/03/19 10/31/19 History [Vitamin D3] escitalopram oxalate 20 mg PO QPM 10/03/19 10/31/19 History insulin aspart U-100 [Novolog 20 - 40 unit SUBCUT DAILY 10/03/19 10/31/19 History U-100 Insulin aspart] valacyclovir 500 mg PO DAILY PRN 10/03/19 10/31/19 History vitamin B complex-folic acid 1 tab PO QDD 10/03/19 10/31/19 History [Super B Maxi Complex] Contour Next Test Strips #600 ea NS 10/14/19 10/15/19 Rx cetirizine 10 mg capsule 10 mg PO DAILY #30 cap 10/15/19 10/31/19 Rx Accu-Chek Fastclix Lancet Drum #600 ea NS 10/20/19 Rx diazepam 5 mg PO HS PRN 10/31/19 10/31/19 History losartan 50 mg PO DAILY 10/31/19 10/31/19 History pantoprazole 20 mg PO QAM 10/31/19 10/31/19 History Patient History Family History (Updated 10/15/19 @ 12:21 by Jose Carlos Urban MD) Father Aortic aneurysm Mother Dementia Myocardial infarction Uncle FHx: diabetes mellitus Daughter FHx: diabetes mellitus Uncle FHx: diabetes mellitus Social History Preferred Language: [place] Communication Ability: Effective Residential Leasing Manager Required: No Beliefs That Will Affect Care: None Current Living Situation: Spouse Feels Safe at Home: Yes Safety Concerns: Feels Safe At This Time Smoking Status: Never smoker Do You Dip or Chew Tobacco: No ; Second Hand Exposure: No ; Hx Alcohol Use: Yes Alcohol type: wine Hx Substance Use: No Seatbelt Use: always Review of Systems Constitutional: no fever and no chills Respiratory: no cough and no dyspnea Cardiovascular: no chest pain, no palpitations, no edema and no calf pain Gastrointestinal: no nausea and no vomiting Physical Exam Constitutional: WD/WN, vitals as above Respiratory: normal respiratory effort, lungs clear to auscultation Cardiovascular: RRR, no murmur, no edema Gastrointestinal (Abdomen): Percussion/Palpation: abdomen soft; no guarding and abdomen not rigid dressing noted from mid to lower adomen, clean, dry and intact Musculoskeletal: no cyanosis or clubbing, extremities motor strength 5/5 Skin: no rashes, warm and dry Psychiatric: A+Ox3, euthymic affect Results & Data ([facility]) Vital Signs (Past 12 Hours) Vital Signs Temp Pulse Pulse Resp BP BP Pulse Ox 10/31/19 15:10 76 14 101/46 L 100 10/31/19 15:00 73 12 105/49 L 96 10/31/19 14:50 36.3 C L 75 12 113/49 L 97 10/31/19 14:40 80 12 127/59 L 100 10/31/19 14:30 74 14 123/55 L 100 10/31/19 14:20 77 14 128/56 L 100 10/31/19 14:10 37.0 C 75 12 127/63 100 10/31/19 09:52 36.8 C 88 20 137/71 98 Resident Activity Tracking Resident Involvement: Resident Care Provided Care Provided: Adult Hospital Medicine
--- NOTE | 2019-10-31 15:52 | Operative Report (OR) ---
DATE OF OPERATION: 10/31/2019 PREOPERATIVE DIAGNOSES: 1. High-grade squamous intraepithelial lesion. 2. Positive high risk human papillomavirus. 3. Inadequate evaluation. POSTOPERATIVE DIAGNOSES: 1. High-grade squamous intraepithelial lesion. 2. Positive high risk human papillomavirus. 3. Inadequate evaluation. PROCEDURE: Total abdominal hysterectomy with bilateral salpingo-oophorectomy. SURGEON: Gini Cole MD. CLIENT SERVICE COORDINATOR: Med Mancia MD. ANESTHESIA: General per endotracheal tube with spinal Duramorph. ESTIMATED BLOOD LOSS: 50 mL. FLUIDS: 1500 mL. URINE OUTPUT: Approximately 400 mL of clear yellow urine drained from the bladder at the end of the procedure. INDICATIONS: The patient is a 63-year-old female who I have followed over the last 4-5 years with minimally abnormal Pap smears with positive 18/45 high risk HPV. The patient has had a couple of cervical procedures, basically removing the entire vaginal portion of the cervix. There is no apparent cervical os and just a nubbin to demonstrate the remaining part of the cervix within the vagina. She recently came back with a high-grade Pap smear. I sent the patient to see Dr. George Hopkins, CLAIMS ADJUSTER SUPERVISOR oncology. He did a colposcopy, did not find any abnormal lesions and recommended hysterectomy. He recommended that I proceed with an open procedure. FINDINGS: Normal uterus, tubes, and ovaries were noted bilaterally. The cervix was removed in its entirety. There were some filmy adhesions of the small bowel to the anterior abdominal wall that were taken down easily. There was a hard constipated stool all throughout the bowel. COMPLICATIONS: None. DRAINS: Liu. DISPOSITION: To recovery room in stable condition. DESCRIPTION OF PROCEDURE: The patient was taken to the operating room where she was identified verbally and by bracelet. She was first seated on the operating table where spinal anesthetic was placed. She was then placed in dorsal lithotomy position and prepped and draped in normal sterile fashion. A time-out was held, identifying correct patient, procedure and positioning. Attention was then turned to the vagina where an exam under anesthesia was performed. There was a nubbin of the cervix within the vagina. The uterus was small and mobile. There were no appreciable adnexal masses. An EEA sizer was placed into the vagina to serve as a form of manipulation. Gloves were then changed. Attention was then turned to the abdomen where her midline vertical scar was removed using a knife. This was taken down to the underlying layer of fascia with the knife. The fascia was incised in the midline, being undermined with a snap and opened with a knife. The midline was found. The peritoneum was identified and entered. This was taken superiorly and inferiorly with good visualization of the bladder. The incision was stretched. An Carlito'Jaime-O'Gutierrez self-retaining retractor was placed into the incision and the bowels were packed away as the patient was placed into deep Trendelenburg position. There were some adhesions of the small bowel to the anterior abdominal wall, which were taken down easily in order to pack the bowels away. Two curved Kellys were placed on the uterine cornu, the round ligament, first on the right and then on the left was identified, grasped with a Miller and a stitch of 0 Vicryl was placed through this. Then using Bovie electrocautery to enter the retroperitoneum, this was taken posteriorly and anteriorly partially creating a bladder flap anteriorly. The ureter was found to be free from the infundibulopelvic ligament. An line operator's finger was placed underneath this. It was clamped x2, cut and suture ligated x2. This was performed identically on the left side. The bladder flap was created anteriorly sharply by using scissors and then pushing down with the line operator's fingers and a sponge on a stick. The uterine arteries were skeletonized bilaterally, clamped, cut and suture ligated. Then using straight Jennifer's bites, the cardinal ligament along the cervix were clamped, cut and suture ligated. Once reaching the cervix, curved Zeppelins were placed across the cervix and then Jacqueline scissors were used to remove the specimen. The cervix was removed in its entirety. Then, using 0 Vicryl sutures at the uterosacral ligaments and 2-0 Vicryl sutures in a [id number] fashion to close the cuff. The uterosacral ligaments were then tied together in the midline. The pelvis was copiously irrigated. The cuff was found to be hemostatic. The retractor was removed. The bowel was unpacked. The fascia was reapproximated with 0 PDS starting at the corners superiorly and inferiorly and meeting in the midline. We then buried the knot by pulling the tissue over it with 4-0 Vicryl and the skin was then closed with earline. All sponge, lap and needle counts were correct x2. The patient tolerated the procedure well and was taken to recovery room in stable condition. I attest to the content of the Intraoperative Record and any orders documented therein. Any exceptions are noted below. MTDD
[2019-10-31] MEDS ORDERED: Nursing to Pharmacy Communication ONE (15:53)
[2019-10-31] MEDS: LACTATED RINGER'S 1,000 ML IV SCH ×2 (16:59→18:59)
[2019-10-31] MEDS: BuPROPion SR 150 MG TABCR PO SCH (16:59)
--- NOTE | 2019-10-31 18:10 | Billing Data ---
Date of Service October 31, 2019 Coding Level of Care Code 46956 Subseq Hosp Care Lvl 2
[2019-10-31] MEDS: ROPINIROLE HCL 0.25 MG TABLET PO SCH (18:56)
[2019-10-31] MEDS: ESCITALOPRAM OXALATE 20 MG TAB PO SCH (20:36)
[2019-10-31] MEDS ORDERED: BuPROPion SR 150 MG TABCR PO SCH (21:00)
[2019-11-01] MEDS: LACTATED RINGER'S 1,000 ML IV SCH (03:08)
[2019-11-01 05:38] LABS: Basophils # (auto) 0.01 K/uL (0-0.2); Basophils % (auto) 0.2 %; Eosinophils # (auto) 0.06 K/uL (0-0.5); Hemoglobin 9.4 g/dL (12.0-16.0); Immature Granulocytes # (auto) 0.01 K/uL (0.00-0.02); Immature Granulocytes % (auto) 0.2 %; Lymphocytes # (auto) 0.89 K/uL (1.2-3.4); Lymphocytes % (auto) 14.3 %; Mean Corpuscular Hemoglobin 32.8 pg (25-34); Mean Corpuscular Hgb Conc 33.6 g/dL (32-36); Mean Corpuscular Volume 97.6 fL (80-100); Monocytes # (auto) 0.44 K/uL (0.11-0.59); Monocytes % (auto) 7.1 %; Neutrophils # (auto) 4.81 K/uL (1.4-6.5); Neutrophils % (auto) 77.2 %; Platelet Count 184 K/uL (130-400); RDW Coefficient of Variation 11.9 % (11.5-14.5); RDW Standard Deviation 42.6 fL (36.4-46.3); Red Blood Count 2.87 M/uL (4.2-5.4); White Blood Count 6.22 K/uL (4.8-10.8)
[2019-11-01 06:04] LABS: BUN Creatinine Ratio 19.9 (10-20); Calcium 7.7 mg/dl (8.5-10.1); Creatinine Clr Calc Pharmacy 83.4 ml/min; Est GFR (African American) 110.4; Est GFR (Non-African American) 95.3; Potassium 4.3 mmol/L (3.5-5.1)
[2019-11-01] MEDS: LEVOTHYROXINE SODIUM 100 MCG TABLET PO SCH (06:20)
--- NOTE | 2019-11-01 06:55 | Hospitalist Progress Note ---
Date of Service November 01, 2019 Assessment & Plan (1) HSIL (high grade squamous intraepithelial lesion) on Pap smear of cervix: Ms. Floyd is a 63 year old female with a past medical history of DM1 with an insulin pump, Kiara's thyroiditis, osteopenia, FABIAN, bipolar disorder, depression, YO, hypertension, and hyperlipidemia who underwent a Total Abdominal Hysterectomy and Bilateral Salpingo-oophorectomy with Dr. Cole on 10/31/2019. The medicine team was consulted to assist with post-operative management. s/p BARRY and b/l salpingo-oopherectomy, day 1 -patient had a history of high-grade squamous intraepithelial lesion & was positive for high risk HPV -pain well controlled post-operatively -post operative management per HYSTER DRIVER -Hgb dropped from baseline of 13.7 to 9.4. Patient's vitals have remained stable, and minimal bleeding reported by patient. CBC ordered for recheck tomorrow to ensure stability -BMP without any concerning abnormalities -anticipate d/c tomorrow DM1 -continue insulin pump -> basal settings provided to patient from May 2019 visit w/ ADAMS Mckeon (with whom patient follows) -> diet advanced this AM - patient able to count carbs and input them into her device -> glucose levels have been well controlled, mostly ranging from 132 - 180, with two levels >200 -most recent HbA1c was 7.4% in July 2019 Hypertension -continue home amlodipine and losartan -BP well controlled Hypothyroidism -continue home synthroid -most recent TSH was 0.26 in Jul 2019. Patient has a recheck ordered w/PCP given the fact that it was low Bipolar disorder/depression/FABIAN -continue home escitalopram, bupropion, prn hydroxyzine, prn trazodone and prn diazepam -patient reports her mood has been stable on this regimen RLS -continue home ropinirole Migraines -continue home prn sumatriptan Recent dilation of esophageal stricture/Esophagitis/Gastritis -continue home protonix -avoid NSAID use YO -patient states she does not wear CPAP at home Vitamin D Deficiency/Osteopenia -continue home calcium and Vitamin D supplementation Thank you for the consult. Medicine will sign off at this time. Please call with any questions or concerns. (2) Gastritis: (3) Insulin pump in place: (4) Depression: (5) Vitamin D deficiency: (6) Restless legs syndrome: (7) Osteopenia: (8) Kiara's thyroiditis: (9) Generalized anxiety disorder: (10) Bipolar affective disorder: (11) Asthma: (12) Dyslipidemia: (13) Gastroparesis: (14) Hypertension: (15) Obstructive sleep apnea: (16) Hypothyroid: Admission and Anticipated Discharge Date Admission Date: October 31, 2019 Supervising Physician Co-Signing Physician Notes I personally examined the patient and verified all valadez points of history and exam, discussed case, and agree with decision making with Dr Owens. feeling better sugars improving comfortable with managing pump as she does at home. otherwise feels OK vitals noted nad heent nc at mmm breathing unlabored no accessory muscles good effort skin no rashes no pallor or icterus DM1 - insulin pump management, sugars improving. continue to utilize basal/bolus anemia - asymptomatic. f/u CBC in AM stable overall medically - will be available for help if needed, otherwise will sign off for now, thank you otherwise as above Subjective Ms. Floyd reports she is feeling well today. She is tolerating liquids without difficulty, and was advanced to a regular diet this AM. She ambulated around the room, and reports her pain is well controlled. She states her sugars have been well controlled, with two levels >200, but otherwise below. She reports minimal bleeding. Review of Systems Constitutional: no fever and no chills Cardiovascular: no chest pain Gastrointestinal: no nausea and no vomiting Physical Exam Constitutional: WD/WN, vitals as above Respiratory: normal respiratory effort; does not use accessory muscles Skin: no rashes, warm and dry Neurologic: CN's II-XI intact bilaterally Psychiatric: A+Ox3, euthymic affect Results & Data ([facility]) Vital Signs (Past 12 Hours) Vital Signs Temp Pulse Resp BP Pulse Ox Pulse Ox 11/01/19 06:17 14 96 11/01/19 05:20 14 95 11/01/19 04:15 14 95 11/01/19 03:15 36.7 C 71 16 125/62 95 11/01/19 02:00 16 97 11/01/19 01:25 14 94 11/01/19 00:30 16 98 10/31/19 23:50 36.8 C 63 16 115/63 97 10/31/19 23:10 16 96 10/31/19 22:20 16 97 10/31/19 21:05 16 97 10/31/19 20:10 36.4 C L 64 16 106/54 L 98 98 10/31/19 20:07 16 98 10/31/19 19:05 16 100 Resident Activity Tracking Resident Involvement: Resident Care Provided Care Provided: Adult [facility] Medicine
[2019-11-01] MEDS ORDERED: diazePAM 5 MG TABLET PO PRN (08:29)
[2019-11-01] MEDS ORDERED: MEPERIDINE HCL 50 MG/ML CARP IV PRN (08:29)
[2019-11-01] MEDS ORDERED: ONDANSETRON INJ 2 MG/ML 2 ML VIAL IV PRN (08:29)
[2019-11-01] MEDS: BuPROPion SR 150 MG TABCR PO SCH ×2 (08:43→15:41)
[2019-11-01] MEDS: PANTOprazole 40 MG TAB PO SCH (08:43)
[2019-11-01] MEDS: LOSARTAN POTASSIUM 50 MG TAB PO SCH (08:43)
[2019-11-01] MEDS: AMLODIPINE BESYLATE 5 MG TAB PO SCH (08:44)
[2019-11-01] MEDS: OXYCODONE/ACETAMINOPHEN 5mg/325mg TAB PO PRN ×3 (08:45→23:36)
--- NOTE | 2019-11-01 08:50 | Gynecologic Progress Note ---
Date of Service November 01, 2019 Assessment & Plan (1) S/P hysterectomy with oophorectomy: POD #1. Doing very well. adat. Liu out and void. Encourage ambulation. encourage IS. If all goes well, anticipate possible d/c tomorrow. Drop of Hgb noted and not consistent with blood loss in the case. Vitals are stable. Suspect that the patient was hemoconcentrated on admission and with hydration has come down. No evidence of bleeding. Appreciate hospitalist input on medical issues, particularly her diabetes and pump management. Subjective Patient doing well this morning. She sat at the side of the bed and had some vertigo with accompanied nausea. Long hx of vertigo. Vitals stable overnight with adequate uop. Notes nausea improved now and tolerating some clears. No gas but does feel some rumbling. Notes pain well controlled. Review of Systems Review of Systems: All systems reviewed & are unremarkable except as noted in HPI & below Physical Exam Constitutional: WD/WN, vitals as above Neck: trachea midline, no thyromegaly Respiratory: normal respiratory effort, lungs clear to auscultation decreased breath sounds in bases l>R Cardiovascular: RRR, no murmur, no edema Extremities: no calf tenderness and no edema Gastrointestinal (Abdomen): soft, nd, ndt, incision c/d/i with earline Psychiatric: A+Ox3, euthymic affect Results & Data ([facility]) Vital Signs (Past 12 Hours) Vital Signs Temp Pulse Resp BP Pulse Ox 11/01/19 06:50 16 98 11/01/19 06:17 14 96 11/01/19 05:20 14 95 11/01/19 04:15 14 95 11/01/19 03:15 36.7 C 71 16 125/62 95 11/01/19 02:00 16 97 11/01/19 01:25 14 94 11/01/19 00:30 16 98 10/31/19 23:50 36.8 C 63 16 115/63 97 10/31/19 23:10 16 96 10/31/19 22:20 16 97 10/31/19 21:05 16 97 PG Care Time/CCT Total # of Minutes Spent Total Time Spent with Patient: Total time spent is greater than 50% in coordination of care (as documented) at patient's floor/unit and/or counseling patient: Coding Level of Care Code None Diagnoses S/P hysterectomy with oophorectomy Z90.710; Z90.721
--- NOTE | 2019-11-01 15:23 | Billing Data ---
Date of Service November 01, 2019 Coding Level of Care Code 25168 Subseq Hosp Care Lvl 2
[2019-11-01] MEDS: ROPINIROLE HCL 0.25 MG TABLET PO SCH (18:36)
[2019-11-01] MEDS: ESCITALOPRAM OXALATE 20 MG TAB PO SCH (20:59)
[2019-11-02 05:49] LABS: Basophils # (auto) 0.01 K/uL (0-0.2); Basophils % (auto) 0.1 %; Eosinophils # (auto) 0.07 K/uL (0-0.5); Eosinophils % (auto) 0.8 %; Hematocrit (blood only) 26.4 % (37-47); Hemoglobin 9.2 g/dL (12.0-16.0); Immature Granulocytes # (auto) 0.03 K/uL (0.00-0.02); Immature Granulocytes % (auto) 0.4 %; Lymphocytes # (auto) 0.62 K/uL (1.2-3.4); Lymphocytes % (auto) 7.3 %; Mean Corpuscular Hemoglobin 32.9 pg (25-34); Mean Corpuscular Hgb Conc 34.8 g/dL (32-36); Mean Corpuscular Volume 94.3 fL (80-100); Mean Platelet Volume 9.8 fL (7.4-10.4); Monocytes # (auto) 0.56 K/uL (0.11-0.59); Monocytes % (auto) 6.6 %; Neutrophils # (auto) 7.17 K/uL (1.4-6.5); Neutrophils % (auto) 84.8 %; Platelet Count 172 K/uL (130-400); RDW Coefficient of Variation 11.5 % (11.5-14.5); RDW Standard Deviation 39.7 fL (36.4-46.3); White Blood Count 8.46 K/uL (4.8-10.8)
[2019-11-02 06:26] LABS: BUN Creatinine Ratio 12.6 (10-20); Creatinine Clr Calc Pharmacy 89.1 ml/min; Est GFR (African American) 112.9; Est GFR (Non-African American) 97.4; Potassium 3.9 mmol/L (3.5-5.1)
[2019-11-02] MEDS: LEVOTHYROXINE SODIUM 100 MCG TABLET PO SCH (06:27)
[2019-11-02] MEDS ORDERED: ACETAMINOPHEN W/CODEINE #3 1 TAB PO PRN (08:17)
--- NOTE | 2019-11-02 08:21 | Gynecologic Progress Note ---
Date of Service November 02, 2019 Assessment & Plan (1) S/P hysterectomy with oophorectomy: Doing well this am. Meeting criteria for d/c. Will trial tylenol with codeine this am to see if it makes her less nauseated. d/c instructions reviewed. Will return to the office for stable removal on Sunday. Questions answered. Admission and Anticipated Discharge Date Admission Date: October 31, 2019 Subjective Patient doing well this am . Sitting up and eating a regular diet. Notes the perocet makes her nauseated and she would rather have pain than nausea. Notes +flatus. Voiding without difficulty. Has ambulated in the brice. Patient notes her pain is well controlled. Review of Systems Review of Systems: All systems reviewed & are unremarkable except as noted in HPI & below Physical Exam Constitutional: WD/WN, vitals as above Neck: trachea midline, no thyromegaly Respiratory: normal respiratory effort, lungs clear to auscultation Cardiovascular: RRR, no murmur, no edema Gastrointestinal (Abdomen): soft, nt, nd, incision c/d/i with earline, slight amount of bruising. Psychiatric: A+Ox3, euthymic affect Results & Data ([facility]) Vital Signs (Past 12 Hours) Vital Signs Temp Pulse Pulse Resp BP Pulse Ox 11/02/19 07:25 37.1 C 94 H 18 155/72 H 96 11/02/19 04:05 37.1 C 100 H 20 159/73 H 96 11/01/19 23:30 37.3 C 87 18 146/66 H 95 PG Care Time/CCT Total # of Minutes Spent Total Time Spent with Patient: Total time spent is greater than 50% in coordination of care (as documented) at patient's floor/unit and/or counseling patient: Coding Level of Care Code None Diagnoses S/P hysterectomy with oophorectomy Z90.710; Z90.721
[2019-11-02] MEDS: BuPROPion SR 150 MG TABCR PO SCH (09:04)
[2019-11-02] MEDS: LOSARTAN POTASSIUM 50 MG TAB PO SCH (09:04)
[2019-11-02] MEDS: AMLODIPINE BESYLATE 5 MG TAB PO SCH (09:04)
[2019-11-02] MEDS: PANTOprazole 40 MG TAB PO SCH (09:04)
[2019-11-02 09:56] LABS: Appearance Urine Cloudy (Clear); Bacteria Urine Automated Negative (Negative); Bilirubin Urine Negative (Negative); Blood Urine 1+ (Negative); Color Urine Yellow; Epithelial Cell Urine Auto >30 /lpf (0-5); Glucose Urine UA 3+ (Negative); Ketones Urine 3+ (Negative); Leukocyte Esterase Urine Negative (Negative); Nitrite Urine Negative (Negative); Protein Urine Negative (Negative); Specific Gravity Urine 1.017 (1.000-1.030); Urobilinogen Urine Negative (Negative)
--- NOTE | 2019-11-02 12:49 | Hospitalist Progress Note ---
Date of Service November 02, 2019 Assessment & Plan (1) HSIL (high grade squamous intraepithelial lesion) on Pap smear of cervix: post op management per baked and graphite inspector (2) Hyponatremia: serum osms low, urine osms and sp grav higher than expected - seems most likely some acute post op SiADH (?pain mediated) - possibly some fluid shifting. no sx at all, has to watch her as well - outlined sx to watch for, stable for home, modest fluid restriction outlined (60oz - about 2L) - BMP 11/03 (PCP informed, baked and graphite inspector ordered through EMR) (3) Anemia: stable, no sx. outpt f/u (4) Insulin pump in place: continue insulin pump management - outpt f/u (5) Gastritis: no sx (6) Depression: (7) Vitamin D deficiency: (8) Restless legs syndrome: (9) Osteopenia: (10) Kiara's thyroiditis: (11) Generalized anxiety disorder: (12) Bipolar affective disorder: (13) Asthma: (14) Dyslipidemia: (15) Gastroparesis: (16) Hypertension: (17) Obstructive sleep apnea: (18) Hypothyroid: (19) Discharge planning issues: DVT proph - was ambulatory dispo - home as above, outpt baked and graphite inspector f/u, BMP 2 days, CBC in future to ensure improving. Admission and Anticipated Discharge Date Admission Date: October 31, 2019 Subjective feels fine and would like to go home - surgically ok for home no confusion/lightheaded/blurred vision, generally feeling ok Review of Systems Review of Systems: All systems reviewed & are unremarkable except as noted in HPI & below Physical Exam Physical Exam: gen aao pleasant nad heent nc at mmm breathing unlabored no accessory muscles good effort skin no rashes no pallor or icterus Results & Data ([facility]) Vital Signs (Past 12 Hours) Vital Signs Temp Pulse Pulse Resp BP Pulse Ox 11/02/19 10:18 98.8 F 87 94 H 18 155/72 H 96 11/02/19 07:25 98.8 F 94 H 18 155/72 H 96 11/02/19 04:05 98.8 F 100 H 20 159/73 H 96 PG Care Time/CCT Total # of Minutes Spent Total Time Spent with Patient: Total time spent is greater than 50% in coordination of care (as documented) at patient's floor/unit and/or counseling patient: Coding Level of Care Code 57007 Subseq Hosp Care Lvl 3 Diagnoses HSIL (high grade squamous intraepithelial lesion) on Pap smear of cervix R87.613 Hyponatremia E87.1 Anemia D64.[address] Z96.41 Gastritis K29.70 Depression F32.9 Vitamin D deficiency E55.9 Restless legs syndrome G25.81 Osteopenia M85.80 Kiara's thyroiditis E06.3 Generalized anxiety disorder F41.1 Bipolar affective disorder F31.9 Asthma J45.909 Dyslipidemia E78.5 Gastroparesis K31.84 Hypertension I10 Obstructive sleep apnea G47.33 Hypothyroid E03.9 Discharge planning issues Z02.9
--- NOTE | 2019-11-04 11:57 | Discharge Summary (DS) ---
ADMISSION DIAGNOSES: High grade squamous intraepithelial lesion on Pap smear of cervix with positive HPV for 18/45 and an adequate evaluation. DISCHARGE DIAGNOSES: Same. PROCEDURES: Total abdominal hysterectomy with bilateral salpingo-oophorectomy. HISTORY OF PRESENT ILLNESS: Radha is 63-year-old postmenopausal female who I have been following for abnormal Pap smears and positive high risk HPV for quite some time now. She presents for hysterectomy. The patient has been HPV positive since 2016 with type 18/45. She has a long history of ASCUS Pap with a large cold knife conization in 11/29 for HALINA 1. She then had normal Paps, but persistently positive HPV. She had an HSIL Pap in August of 2019. My colposcopy was negative. She was sent for a second opinion with Dr. Hopknis who performed colposcopy, did not see any high grade lesion and recommended abdominal hysterectomy. For the rest of the patient's detailed history and physical, please see her history and physical. ASSESSMENT: This is a 63-year-old postmenopausal female with HSIL Pap, positive HPV and inadequate evaluation. HOSPITAL COURSE: The patient was admitted and she underwent a total abdominal hysterectomy with bilateral salpingo-oophorectomy without difficulty. ESTIMATED BLOOD LOSS: 50 mL. FINDINGS: At the time of surgery revealed a normal uterus with some adhesions of the small bowel to the uterus and anterior abdominal wall. Normal uterus, tubes, and ovaries were noted bilaterally. The cervix was removed in its entirety. There was hard constipated stool noted throughout the large bowel. Her hospital course was uncomplicated. She tolerated a regular diet, although her appetite was poor. She voided after the removal of her Liu catheter. Her pain was well controlled on oral pain medications and she ambulated without difficulty. Hospitalist was consulted for management of her diabetes and followed throughout her hospitalization. They managed her diabetes based on her pump. They were concerned about some hyponatremia and a serum osmolality that was low and her urine specific gravity that was higher than expected, so thought that she had acute postop SiADH with some possible fluid shifting. She had no symptoms at all and was sent home on some fluid restriction and was to follow up in Dr. Urban's office for a BMP on 11/04/2019. She did pass gas prior to discharge. Although her H&H dropped from a preoperative value of 13.7 and 38.8 on 10/10/2019 to 9.4 and 28.0 postoperatively day #1, there was not significant blood loss and I thought perhaps that this was secondary to hemoconcentration prior to surgery and fluids given during the time of surgery. Her vitals remained stable. She was not tachycardic nor was her blood pressure low that made me suspect that she had internal bleeding. Her creatinine remained low with preop of 0.79, postop of 0.62 and 0.58. She was discharged home on postoperative day #2. The Percocet pain medication made her nauseated, so we tried Tylenol with Codeine and she was much better with that and was sent home with Tylenol with Codeine. I wanted to send her home with ibuprofen and did send a script into the pharmacy; however, the patient said that she was told with her esophageal stricture that she should not take ibuprofen and therefore I marked this off on her discharge instruction sheet and she was instructed not to take this. She will follow up in about 4 weeks for postoperative visit and will go for labs to Dr. Urban's office on Sunday. I will follow up with the patient by phone. She should have her earline removed on Sunday and then we will set up postoperative followup.
== END 2019-11-02 12:00 | disposition home or self-care (01) | DRG 742 ==
LOC: ASU 08:45 → 4N 14:14